=== PATIENT | female | born 1955 | race Caucasian/White ===

== ENCOUNTER 2017-12-15 12:52 | Outpatient (CLI) | payer BC ==
[2017-12-15] MEDS ORDERED: Gadobenate Dimeglumine 529 MG/1 ML (20ML VIAL) ONE (14:23)
== END 2017-12-15 12:53 | disposition home or self-care (01) ==
LOC: BICMRI 12:52
PROVIDERS: ATTEND Colon & Rectal Surgery
DX: R15.2 Fecal urgency (principal); M47.896 Other spondylosis, lumbar region
CPT/HCPCS: 72197; A9579

== ENCOUNTER 2018-08-27 23:29 | Observation (INO) | payer BC ==
[2018-08-28 00:06] LABS: #Basophils 0.1 thou/uL (0.0-0.2); #Eosinphils 0.2 thou/uL (0.0-0.7); #Lymphocytes 1.9 thou/uL (1.20-3.40); #Monocytes 0.4 thou/uL (0.11-0.59); #Neutrophils 2.4 thou/uL (1.40-6.50); %Basophils 1.1 % (0.0-1.0); %Eosinophils 3.2 % (0.0-10.0); %Lymphocytes 38.2 % (21.0-51.0); %Neutrophils 49.5 % (42.0-75.0); Hemoglobin 14.1 g/dL (12.0-16.0); Mean Corpuscular Hemoglobin 31.1 pg (27.0-31.0); Mean Corpuscular Volume 91.6 fL (78.0-98.0); Mean Platelet Volume 8.2 fL (7.4-10.4); Platelet Count 187 thou/uL (130-400); RBC Distribution Width 12.6 % (11.5-14.5); Red Blood Cell (RBC) Count 4.55 mill/uL (4.20-5.40); White Blood Cell (WBC) Count 4.9 thou/uL (4.8-10.8)
[2018-08-28] MEDS ORDERED: Lorazepam 2 MG/ML VIAL ONE (00:09)
[2018-08-28 00:26] LABS: ALT (SGPT) 27 U/L (8-55); AST (SGOT) 21 U/L (5-34); Albumin 4.2 g/dL (3.4-4.8); Alkaline Phosphatase 60 U/L (40-150); Anion Gap 13 mmol/L (10-20); BUN (Urea Nitrogen) 27 mg/dL (9.8-20.1); Bilirubin, Total 0.2 mg/dL (0.2-1.2); Calc. Creatinine Clearance 0 mL/min (70-130); Calcium 9.8 mg/dL (7.8-10.44); Carbon Dioxide 25 mmol/L (23-31); Chloride 104 mmol/L (98-107); Estimated GFR-MDRD 55; Globulin 2.8 g/dL (2.4-3.5); Glucose 93 mg/dL (80-115); Potassium 4.3 mmol/L (3.5-5.1); Sodium 138 mmol/L (136-145)
[2018-08-28 00:45] LABS: Free T4 (Free Thyroxine) 1.24 ng/dL (0.70-1.48); Thyroid Stimulating Hormone 1.8299 uIU/mL (0.35-4.94)
[2018-08-28] MEDS ORDERED: Lorazepam 2 MG/ML VIAL SLOW IVP PRN (02:58)
[2018-08-28 03:19] VITALS: BMI 21.5
[2018-08-28] MEDS: Sodium Chloride 0.9% 1,000 ML IV SCH ×2 (03:41→10:04)
[2018-08-28] MEDS ORDERED: Ondansetron HCl/PF 4 MG/2 ML Vial IVP PRN (05:54)
[2018-08-28] MEDS ORDERED: Levothyroxine Sodium 125 MCG TAB PO SCH (06:00)
[2018-08-28] MEDS ORDERED: Sodium Chloride 0.9% 1,000 ML IV SCH (06:00)
--- NOTE | 2018-08-28 06:27 | HP ---
CHIEF COMPLAINT: Anxiety. HISTORIAN: Patient. HISTORY OF PRESENT ILLNESS: This is a 63-year-old female with past medical history of anxiety, hyper tension, hypothyroidism, presenting with anxiety and diarrhea. Per electronic medical records and peyton evans, she states that she normally takes Valium 2 mg 4 times a day and that is the medication that h as been prescribed by a psychologist and she has been taking this for a while and in the past couple of days, patient stated that she has not been feeling too well and she felt very agitated. Therefore , patient decided not to take her full dose of Valium the day of admission. Patient then became very jittery and patient started having episodes of diarrhea because the patient took only 2 mg throughou t the whole day on the day of admission. Patient denies any fever, nausea, vomiting, chest pain, pal pitation, shortness of breath. REVIEW OF SYSTEMS: Positive for anxiety, jitteriness, tremors, diarrhea otherwise as documented in t he HPI. All other systems were reviewed and are negative. FAMILY HISTORY: Reviewed and noncontributory. PAST MEDICAL HISTORY: Hypothyroidism, hypertension, anxiety. PAST SURGICAL HISTORY: Back, hernia repair, lumbar region, right breast biopsy. PSYCHIATRIC HISTORY: Anxiety. SOCIAL HISTORY: Patient drinks occasionally and patient states that she smokes tobacco, smokes 1-2 c igarettes per day and patient has been smoking for 20 years. Patient denies any illicit drug use. ALLERGIES: Patient is allergic to AMOXICILLIN, AUGMENTIN, GABAPENTIN. CURRENT MEDICATIONS: Patient is on levothyroxine, temazepam, diazepam, sertraline. PHYSICAL EXAMINATION: VITAL SIGNS: Blood pressure is 159/58, pulse is 68, respiratory rate of 16, temperature of 99.2, oxy gen saturation of 97%. GENERAL: Patient is alert, oriented x3, not in acute distress. Patient is now lying in bed comforta pricila. Patient does not appear to be anxious at this time. HEENT: Normocephalic, atraumatic. Pupils are equally round and react to light. Extraocular movemen ts are intact. No scleral icterus. No conjunctival pallor. Mucous membranes are moist. Trachea is midline. NECK: Supple. No JVD. LUNGS: Clear to auscultation bilateral. No wheezing, no rales, no rhonchus appreciated. CARDIOVASCULAR: Positive S1, S2, regular rate and rhythm, no murmurs, no gallops or rubs appreciated . ABDOMEN: Soft, nontender, nondistended. Positive bowel sounds in all quadrants. No pulsatile sylvia s. No peritoneal signs. No rigidity. EXTREMITIES: Upper extremity strength 5/5 and 5/5 lower extremity strength. Good pulses bilaterally at the upper extremity and lower extremities. NEUROLOGIC: Patient has a GCS of 15. Hyperreflexes noted. Patient has some tremulousness. Otherwi se, patient does not have any neurological deficits. SKIN: Warm, dry, and intact. PSYCHIATRIC: Normal affect. LABORATORY DATA: WBC is 4.9, hemoglobin is 14.1, hematocrit is 41.7, platelet count of 587. Sodium is 138, potassium 4.3, chloride 104, carbon dioxide 25, anion gap of 13, BUN is 27, creatinine is 1.0 2, glucose is 93, T4 free is 1.24. TSH is 1.8299. ASSESSMENT AND PLAN: This is a 63-year-old female with significant history of anxiety, being admitte d for benzodiazepine withdrawal. At this point, the patient is calm, and the patient has received 2 mg Ativan. We are going to start patient back on her regular regimen of diazepam q.i.d. and we will give patient gentle hydration and continue supportive care. 1. History of anxiety. Patient did have history of anxiety and persisting that she has been taking diazepam 8 mg total daily. At this point, we will continue the patient on her current regimen and we will advise the patient to follow up with her psychiatrist regarding benzodiazepine taper if needed. 2. Hypertension. We will monitor the patient's blood pressure closely and will give patient blood p ressure medication as needed. 3. Hypothyroidism. We will continue the patient on her current medication. 4. Deep venous thrombosis and gastrointestinal prophylaxis. We will do Lovenox and Pepcid. This case has been dictated by Dr. Clement Herndon on patient, Dionna Valenzuela.
[2018-08-28] MEDS: Diazepam 2 MG TAB PO SCH ×2 (08:58→13:52)
[2018-08-28] MEDS ORDERED: Famotidine/PF 20 mg/2ml Vial SLOW IVP SCH (09:00)
[2018-08-28] MEDS ORDERED: Nicotine 14 MG PATCH TD SCH (09:00)
[2018-08-28] MEDS ORDERED: Enoxaparin Sodium 40 MG/0.4 ML SYRINGE SC SCH (09:00)
[2018-08-28 11:34] VITALS: BP 117/58; TEMP 98.3
--- NOTE | 2018-08-29 00:27 | DIS ---
SHORT STAY SUMMARY DATE OF ADMISSION: 08/28/2018 DATE OF DISCHARGE: 08/28/2018 DIAGNOSES: Benzodiazepine withdrawal, which is resolved; anxiety; essential hypertension; hypothyroidism, controlled on medications. CONSULTANTS: There were no consultants. CODE STATUS: FULL. PROCEDURES: There were no procedures performed during this visit. HISTORY AND PHYSICAL: Patient was examined by me on this visit and no changes from prior H&P on the hospitalist note from today. HOSPITAL COURSE: Seen by me this morning. The patient is feeling better after being given Ativan in the ER and her scheduled dose of diazepam this morning. She has a history of anxiety and is prescribed this Valium 2 mg x 4 times per day. Two days prior to admission, she took an extra Valium with her temazepam at night and woke up feeling very agitated. Reports on the day of admission, she only took 1 tablet of her valium all day because she was afraid she overdosed on her medications. She reports she went to the ED because she was "feeling wierd". Reports 1 episode of diarrhea while she has been in the hospital. She is feeling better today and vital signs are stable. Denies no new complaints. Temperature is 98.3, pulse is 60, blood pressure is 117/58, respirations are 16, pulse oximetry is 95 on room air. MEDICATIONS: There will be no new meds added to her regimen, or discontinued meds. She is to continue levothyroxine 125 mcg p.o. daily, diazepam 2 mg q.i.d. , sertraline 100 mg p.o. daily, and temazepam 30 mg p.o. p.r.n. at bedtime. DISCHARGE CONDITION: Stable. DISPOSITION: Discharged home via private vehicle. FOLLOWUP APPOINTMENTS: She is to see Dr. Richard and Dr. Romero within the next week. [facility] FACILITYMorgan
[2018-08-29] MEDS ORDERED: Famotidine 20 MG TAB PO SCH (09:00)
== END 2018-08-28 13:47 | disposition home or self-care (01) ==
LOC: ERS 23:29 → 2SW 08-28 01:19
PROVIDERS: ADMIT Internal Medicine; ATTEND Internal Medicine
DX: F13.239 Sedative, hypnotic or anxiolytic dependence with withdrawal, unspecified (principal); F41.9 Anxiety disorder, unspecified; I10 Essential (primary) hypertension; E03.9 Hypothyroidism, unspecified; F17.210 Nicotine dependence, cigarettes, uncomplicated; Z79.899 Other long term (current) drug therapy; Z88.0 Allergy status to penicillin; Z88.8 Allergy status to other drugs, medicaments and biological substances
CPT/HCPCS: 36415; 80053; 84439; 84443; 85025; 90471; 90686; 93005; 96361; 96374; 96375; 96376; G0008; G0378; J1650; J2060; S0028

== ENCOUNTER 2018-08-29 14:21 | Emergency (ER) | payer BC ==
[2018-08-29] MEDS ORDERED: diphenhydrAMINE 25 MG CAP ONE (14:28)
[2018-08-29 15:09] LABS: #Basophils 0.1 thou/uL (0.0-0.2); #Eosinphils 0.1 thou/uL (0.0-0.7); #Lymphocytes 1.3 thou/uL (1.20-3.40); #Monocytes 0.4 thou/uL (0.11-0.59); #Neutrophils 3.1 thou/uL (1.40-6.50); %Eosinophils 1.4 % (0.0-10.0); %Lymphocytes 25.7 % (21.0-51.0); %Monocytes 8.2 % (0.0-10.0); %Neutrophils 63.7 % (42.0-75.0); Hemoglobin 14.4 g/dL (12.0-16.0); Mean Corpuscular HGB CONC 33.4 g/dL (32.0-36.0); Mean Corpuscular Hemoglobin 30.5 pg (27.0-31.0); Mean Corpuscular Volume 91.5 fL (78.0-98.0); Mean Platelet Volume 8.8 fL (7.4-10.4); Platelet Count 185 thou/uL (130-400); Red Blood Cell (RBC) Count 4.71 mill/uL (4.20-5.40); White Blood Cell (WBC) Count 4.9 thou/uL (4.8-10.8)
[2018-08-29 15:19] LABS: ALT (SGPT) 30 U/L (8-55); AST (SGOT) 24 U/L (5-34); Albumin 4.6 g/dL (3.4-4.8); Alkaline Phosphatase 63 U/L (40-150); Anion Gap 11 mmol/L (10-20); BUN (Urea Nitrogen) 17 mg/dL (9.8-20.1); Bilirubin, Total 0.3 mg/dL (0.2-1.2); CK (CPK) 112 U/L (29-168); Calc. Creatinine Clearance 0 mL/min (70-130); Calcium 9.7 mg/dL (7.8-10.44); Carbon Dioxide 30 mmol/L (23-31); Chloride 100 mmol/L (98-107); Estimated GFR-MDRD 62; Globulin 2.8 g/dL (2.4-3.5); Glucose 101 mg/dL (80-115); Lipase 77 U/L (8-78); Magnesium 2.4 mg/dL (1.6-2.6); Potassium 4.2 mmol/L (3.5-5.1); Protein, Total 7.4 g/dL (6.0-8.3); Sodium 137 mmol/L (136-145)
[2018-08-29 15:24] LABS: CKMB 1.9 ng/mL (0-6.6); Troponin I Less than 0.010 ng/mL (< 0.028)
== END 2018-08-29 16:38 | disposition home or self-care (01) ==
LOC: ERS 14:21
DX: F41.9 Anxiety disorder, unspecified (principal); E03.9 Hypothyroidism, unspecified; F17.210 Nicotine dependence, cigarettes, uncomplicated; Z79.899 Other long term (current) drug therapy
CPT/HCPCS: 80053; 82550; 82553; 83690; 83735; 84443; 84484; 85025; 93005; 94760

== ENCOUNTER 2019-02-06 17:19 | Emergency (ER) | payer BC ==
[2019-02-06 19:10] LABS: #Basophils 0.1 thou/uL (0.0-0.2); #Eosinphils 0.1 thou/uL (0.0-0.7); #Lymphocytes 1.6 thou/uL (1.20-3.40); #Monocytes 0.5 thou/uL (0.11-0.59); #Neutrophils 4.7 thou/uL (1.40-6.50); %Basophils 1.2 % (0.0-1.0); %Eosinophils 2.1 % (0.0-10.0); %Monocytes 6.6 % (0.0-10.0); %Neutrophils 67.2 % (42.0-75.0); Hemoglobin 15.6 g/dL (12.0-16.0); Mean Corpuscular HGB CONC 32.7 g/dL (32.0-36.0); Mean Corpuscular Hemoglobin 31.7 pg (27.0-31.0); Mean Corpuscular Volume 96.9 fL (78.0-98.0); Mean Platelet Volume 7.2 fL (7.4-10.4); Platelet Count 246 thou/uL (130-400); RBC Distribution Width 12.4 % (11.5-14.5); Red Blood Cell (RBC) Count 4.92 mill/uL (4.20-5.40); White Blood Cell (WBC) Count 6.9 thou/uL (4.8-10.8)
[2019-02-06 19:32] LABS: ALT (SGPT) 20 U/L (8-55); AST (SGOT) 19 U/L (5-34); Albumin 4.6 g/dL (3.4-4.8); Alkaline Phosphatase 91 U/L (40-150); Anion Gap 12 mmol/L (10-20); BUN (Urea Nitrogen) 13 mg/dL (9.8-20.1); Bilirubin, Total 0.2 mg/dL (0.2-1.2); CK (CPK) 99 U/L (29-168); Calc. Creatinine Clearance 0 mL/min (70-130); Carbon Dioxide 30 mmol/L (23-31); Chloride 100 mmol/L (98-107); Estimated GFR-MDRD 56; Glucose 98 mg/dL (80-115); Lipase 50 U/L (8-78); Potassium 4.4 mmol/L (3.5-5.1); Protein, Total 7.6 g/dL (6.0-8.3); Sodium 138 mmol/L (136-145)
[2019-02-06] MEDS ORDERED: Ondansetron PF 4 MG/2 ML Vial ONE (19:42)
--- NOTE | 2019-02-06 19:57 | RAD ---
AP VIEW CHEST: 02/06/19 HISTORY: Cough, weakness. AP view chest is obtained on 02/06/19. COMPARISON: Comparison made to previous exam from 01/23/13. AP view chest demonstrates the lungs to be well aerated. No evidence of active intrathoracic disease seen. No evidence of effusions, pneumonia or pneumothorax seen. IMPRESSION: Unremarkable AP view chest. POS: [facility]
[2019-02-06] MEDS ORDERED: ALPRAZolam 0.5 MG TAB ONE (20:54)
[2019-02-06 20:57] LABS: Bilirubin Negative (Negative); Blood, Urine Negative (Negative); Clarity CLEAR (Clear); Glucose, Urine (Dipstick) Negative (Negative); Leukocyte Negative (Negative); Nitrite Negative (Negative); Protein, Urine (Dipstick) Negative (Neg-Trace); Specific Gravity, Urine 1.007 (1.002-1.036); Urobilinogen 0.2 mg/dL (0.2-1.0)
== END 2019-02-06 21:43 | disposition home or self-care (01) ==
LOC: ERS 17:19
DX: B34.9 Viral infection, unspecified (principal); R53.1 Weakness; R11.0 Nausea; E03.9 Hypothyroidism, unspecified; F41.9 Anxiety disorder, unspecified; F32.9 Major depressive disorder, single episode, unspecified; F17.210 Nicotine dependence, cigarettes, uncomplicated; K58.9 Irritable bowel syndrome, unspecified
CPT/HCPCS: 36415; 71045; 80053; 81003; 82550; 83690; 84443; 84484; 85025; 87804; 93005; 96361; 96374; J2405

== ENCOUNTER 2019-02-16 12:02 | Emergency (ER) | payer BC ==
[2019-02-16] MEDS ORDERED: Ondansetron PF 4 MG/2 ML Vial ONE (12:54)
[2019-02-16 13:15] LABS: #Eosinphils 0.1 thou/uL (0.0-0.7); #Lymphocytes 1.1 thou/uL (1.20-3.40); #Monocytes 0.4 thou/uL (0.11-0.59); #Neutrophils 3.4 thou/uL (1.40-6.50); %Eosinophils 1.6 % (0.0-10.0); %Lymphocytes 21.4 % (21.0-51.0); %Monocytes 7.1 % (0.0-10.0); %Neutrophils 68.9 % (42.0-75.0); Hemoglobin 14.1 g/dL (12.0-16.0); Mean Corpuscular HGB CONC 33.4 g/dL (32.0-36.0); Mean Corpuscular Hemoglobin 32.5 pg (27.0-31.0); Mean Corpuscular Volume 97.2 fL (78.0-98.0); Mean Platelet Volume 7.3 fL (7.4-10.4); Platelet Count 189 thou/uL (130-400); RBC Distribution Width 12.1 % (11.5-14.5); Red Blood Cell (RBC) Count 4.33 mill/uL (4.20-5.40); White Blood Cell (WBC) Count 4.9 thou/uL (4.8-10.8)
--- NOTE | 2019-02-16 13:32 | RAD ---
PORTABLE CHEST: Date: 02/16/19 HISTORY: Weakness. Syncope. COMPARISON: 02/06/19. FINDINGS: Heart size and mediastinum are within normal limits. The lungs are clear of any infiltrative process. No significant bony findings. IMPRESSION: No active intrathoracic disease. POS: [facility]
[2019-02-16 13:35] LABS: ALT (SGPT) 39 U/L (8-55); AST (SGOT) 25 U/L (5-34); Albumin 4.4 g/dL (3.4-4.8); Alkaline Phosphatase 77 U/L (40-150); Anion Gap 11 mmol/L (10-20); BUN (Urea Nitrogen) 22 mg/dL (9.8-20.1); Bilirubin, Total 0.2 mg/dL (0.2-1.2); Calc. Creatinine Clearance 0 mL/min (70-130); Calcium 9.7 mg/dL (7.8-10.44); Carbon Dioxide 34 mmol/L (23-31); Chloride 99 mmol/L (98-107); Estimated GFR-MDRD 68; Globulin 2.8 g/dL (2.4-3.5); Glucose 85 mg/dL (80-115); Potassium 4.8 mmol/L (3.5-5.1); Protein, Total 7.2 g/dL (6.0-8.3); Sodium 139 mmol/L (136-145)
[2019-02-16 13:36] LABS: Bilirubin Negative (Negative); Blood, Urine Negative (Negative); Clarity CLEAR (Clear); Glucose, Urine (Dipstick) Negative (Negative); Leukocyte Negative (Negative); Nitrite Negative (Negative); Protein, Urine (Dipstick) Negative (Neg-Trace); Specific Gravity, Urine 1.008 (1.002-1.036); Urobilinogen 0.2 mg/dL (0.2-1.0)
[2019-02-16] MEDS ORDERED: Metoclopramide HCl 10 MG/2 ML VIAL ONE (13:50)
== END 2019-02-16 14:57 | disposition home or self-care (01) ==
LOC: ERS 12:02
DX: R11.2 Nausea with vomiting, unspecified (principal); E03.9 Hypothyroidism, unspecified; F41.9 Anxiety disorder, unspecified; F32.9 Major depressive disorder, single episode, unspecified; F17.210 Nicotine dependence, cigarettes, uncomplicated; Z79.899 Other long term (current) drug therapy
CPT/HCPCS: 71045; 80053; 81003; 84484; 85025; 93005; 96361; 96365; 96375; J2405; J2765

== ENCOUNTER 2019-02-20 13:30 | Emergency (ER) | payer BC ==
[2019-02-20] MEDS ORDERED: Ketorolac Tromethamine 30 MG/ML VIAL ONE (15:08)
[2019-02-20] MEDS ORDERED: Metoclopramide HCl 10 MG/2 ML VIAL ONE (15:08)
[2019-02-20] MEDS ORDERED: diphenhydrAMINE 50 MG/ML VIAL ONE (15:08)
--- NOTE | 2019-02-20 15:26 | CT ---
CT BRAIN NONCONTRAST: Date: 02/20/19 Time: 1510 hours HISTORY: 64-year-old female with headache. FINDINGS: There is no midline shift or any other mass effect. There is no evidence of acute intracranial hemor rhage, large cortical infarct, obstructive hydrocephalus, or extraaxial fluid collection. The calvar ium is intact. There are chronic ischemic white matter changes in the cerebrum. There is no significa nt interval change compared to 01/23/13. IMPRESSION: 1. No acute intracranial findings. 2. Chronic ischemic white matter changes. jn [] POS: [facility]
[2019-02-20 17:56] LABS: #Basophils 0.1 thou/uL (0.0-0.2); #Eosinphils 0.1 thou/uL (0.0-0.7); #Lymphocytes 1.5 thou/uL (1.20-3.40); #Monocytes 0.3 thou/uL (0.11-0.59); #Neutrophils 2.7 thou/uL (1.40-6.50); %Basophils 1.1 % (0.0-1.0); %Eosinophils 1.9 % (0.0-10.0); %Lymphocytes 31.6 % (21.0-51.0); %Monocytes 6.6 % (0.0-10.0); %Neutrophils 58.8 % (42.0-75.0); Hemoglobin 13.5 g/dL (12.0-16.0); Mean Corpuscular HGB CONC 32.2 g/dL (32.0-36.0); Mean Corpuscular Hemoglobin 31.2 pg (27.0-31.0); Mean Corpuscular Volume 96.8 fL (78.0-98.0); Mean Platelet Volume 7.3 fL (7.4-10.4); Platelet Count 182 thou/uL (130-400); Red Blood Cell (RBC) Count 4.32 mill/uL (4.20-5.40); White Blood Cell (WBC) Count 4.7 thou/uL (4.8-10.8)
[2019-02-20] MEDS ORDERED: Magnesium 2 GM/50 ML BAG (IN WATER) ONE (18:06)
[2019-02-20] MEDS ORDERED: Acetaminophen 500 MG TAB ONE (18:06)
[2019-02-20] MEDS ORDERED: Ondansetron PF 4 MG/2 ML Vial ONE (18:06)
[2019-02-20] MEDS ORDERED: methylPREDNISolone Sod Succ/PF 125 MG/2 ML VIAL ONE (18:13)
[2019-02-20 18:18] LABS: ALT (SGPT) 55 U/L (8-55); AST (SGOT) 33 U/L (5-34); Albumin 3.9 g/dL (3.4-4.8); Alkaline Phosphatase 74 U/L (40-150); Anion Gap 9 mmol/L (10-20); BUN (Urea Nitrogen) 11 mg/dL (9.8-20.1); Bilirubin, Total 0.4 mg/dL (0.2-1.2); Calc. Creatinine Clearance 0 mL/min (70-130); Calcium 8.6 mg/dL (7.8-10.44); Carbon Dioxide 28 mmol/L (23-31); Chloride 104 mmol/L (98-107); Estimated GFR-MDRD 68; Globulin 2.2 g/dL (2.4-3.5); Glucose 96 mg/dL (80-115); Potassium 4.6 mmol/L (3.5-5.1); Protein, Total 6.1 g/dL (6.0-8.3); Sodium 136 mmol/L (136-145)
== END 2019-02-20 19:47 | disposition home or self-care (01) ==
LOC: ERS 13:30
DX: R51 Headache (principal); E03.9 Hypothyroidism, unspecified; F41.9 Anxiety disorder, unspecified; F32.9 Major depressive disorder, single episode, unspecified; F17.210 Nicotine dependence, cigarettes, uncomplicated; Z79.899 Other long term (current) drug therapy
CPT/HCPCS: 36415; 70450; 80053; 85025; 96361; 96365; 96367; 96375; J1200; J1885; J2405; J2765; J2930; J3475

== ENCOUNTER 2021-12-17 10:30 | Outpatient (CLI) | payer MEDICARE | END 2021-12-17 10:31 | disposition home or self-care (01) | LOC: ULT 10:30 | PROVIDERS: ATTEND Family Medicine | DX: Z13.6 Encounter for screening for cardiovascular disorders (principal) | CPT/HCPCS: 76775 ==

== ENCOUNTER 2021-12-21 12:20 | Outpatient (CLI) | payer MEDICARE | END 2021-12-21 12:21 | disposition home or self-care (01) | LOC: BICMAMMO 12:20 | PROVIDERS: ATTEND Family Medicine | DX: Z12.31 Encounter for screening mammogram for malignant neoplasm of breast (principal); Z80.3 Family history of malignant neoplasm of breast | CPT/HCPCS: 77063; 77067 ==

== ENCOUNTER 2021-12-21 13:14 | Outpatient (CLI) | payer MEDICARE | END 2021-12-21 13:15 | disposition home or self-care (01) | LOC: BICRAD 13:14 | PROVIDERS: ATTEND Family Medicine | DX: M25.512 Pain in left shoulder (principal); M25.511 Pain in right shoulder ==

== ENCOUNTER 2022-01-10 13:40 | Outpatient (CLI) | payer MEDICARE | END 2022-01-10 13:41 | disposition home or self-care (01) | LOC: BICRAD 13:40 | PROVIDERS: ATTEND Family Medicine | DX: M47.812 Spondylosis without myelopathy or radiculopathy, cervical region (principal) | CPT/HCPCS: 72040 ==

== ENCOUNTER 2022-04-20 13:15 | Outpatient (CLI) | payer MEDICARE | END 2022-04-20 13:16 | disposition home or self-care (01) | LOC: ULT 13:15 | PROVIDERS: ATTEND Family Medicine | DX: R09.89 Other specified symptoms and signs involving the circulatory and respiratory systems (principal); I70.213 Atherosclerosis of native arteries of extremities with intermittent claudication, bilateral legs | CPT/HCPCS: 93923 ==

== ENCOUNTER 2022-06-22 11:28 | Outpatient (CLI) | payer MEDICARE ==
[2022-06-22] MEDS ORDERED: Iopamidol 370 76% 100 ML VIAL ONE (14:09)
== END 2022-06-22 11:29 | disposition home or self-care (01) ==
LOC: CT 11:28
PROVIDERS: ATTEND Family Medicine
DX: R09.89 Other specified symptoms and signs involving the circulatory and respiratory systems (principal); I70.1 Atherosclerosis of renal artery; I70.0 Atherosclerosis of aorta
CPT/HCPCS: 75635; 82565; Q9967

== ENCOUNTER 2022-07-05 12:02 | Emergency (ER) | payer MEDICARE ==
[2022-07-05 12:40] LABS: #Basophils 0.1 thou/uL (0.0-0.2); #Eosinphils 0.1 thou/uL (0.0-0.7); #Monocytes 0.6 thou/uL (0.11-0.59); #Neutrophils 9.5 thou/uL (1.40-6.50); %Basophils 0.5 % (0.0-1.0); %Eosinophils 0.7 % (0.0-10.0); %Lymphocytes 9.1 % (21.0-51.0); %Monocytes 5.4 % (0.0-10.0); %Neutrophils 84.3 % (42.0-75.0); Hemoglobin 15.5 g/dL (12.0-16.0); Mean Corpuscular HGB CONC 32.5 g/dL (32.0-36.0); Mean Corpuscular Hemoglobin 31.6 pg (27.0-31.0); Mean Corpuscular Volume 97.3 fL (78.0-98.0); Mean Platelet Volume 7.7 fL (7.4-10.4); Platelet Count 186 thou/uL (130-400); RBC Distribution Width 11.9 % (11.5-14.5); Red Blood Cell (RBC) Count 4.89 mill/uL (4.20-5.40); White Blood Cell (WBC) Count 11.3 thou/uL (4.8-10.8)
[2022-07-05 12:51] LABS: ALT (SGPT) 11 U/L (8-55); AST (SGOT) 12 U/L (5-34); Albumin 4.3 g/dL (3.4-4.8); Alkaline Phosphatase 56 U/L (40-110); Anion Gap 13 mmol/L (10-20); BUN (Urea Nitrogen) 14 mg/dL (9.8-20.1); Bilirubin, Total 0.5 mg/dL (0.2-1.2); Calc. Creatinine Clearance 0 mL/min (70-130); Calcium 9.2 mg/dL (7.8-10.44); Carbon Dioxide 28 mmol/L (23-31); Chloride 99 mmol/L (98-107); Estimated GFR 66; Globulin 2.5 g/dL (2.4-3.5); Glucose 134 mg/dL (80-115); Potassium 4.4 mmol/L (3.5-5.1); Protein, Total 6.8 g/dL (5.8-8.1); Sodium 136 mmol/L (136-145)
[2022-07-05] MEDS ORDERED: diphenhydrAMINE 50 MG/ML VIAL ONE (13:43)
[2022-07-05] MEDS ORDERED: Haloperidol Lactate 5 MG/ML VIAL ONE (13:43)
== END 2022-07-05 15:02 | disposition home or self-care (01) ==
LOC: ERS 12:02
DX: K56.41 Fecal impaction (principal); E03.9 Hypothyroidism, unspecified; K58.9 Irritable bowel syndrome, unspecified; E06.3 Autoimmune thyroiditis; F17.210 Nicotine dependence, cigarettes, uncomplicated; Z79.82 Long term (current) use of aspirin; Z79.899 Other long term (current) drug therapy
CPT/HCPCS: 36415; 74019; 80053; 85025; 96372; J1200; J1630

== ENCOUNTER 2022-07-29 12:53 | Outpatient (CLI) | payer MEDICARE | END 2022-07-29 12:54 | disposition home or self-care (01) | LOC: RAD 12:53 | PROVIDERS: ATTEND Family Medicine | DX: R07.89 Other chest pain (principal); M41.57 Other secondary scoliosis, lumbosacral region; G89.29 Other chronic pain; M47.816 Spondylosis without myelopathy or radiculopathy, lumbar region; M47.814 Spondylosis without myelopathy or radiculopathy, thoracic region; M41.9 Scoliosis, unspecified | CPT/HCPCS: 71046; 72072; 72100 ==

== ENCOUNTER 2022-09-04 11:06 | Inpatient (IN) | payer MEDICARE ==
[~2022-09-04 11:06] MED LIST: Iopamidol 370 76% 50 ML VIAL FS ONE
[2022-09-04] MEDS ORDERED: Fentanyl 100 MCG/2 ML VIAL ONE (11:44)
[2022-09-04] MEDS ORDERED: Acetaminophen 500 MG TAB ONE (11:44)
[2022-09-04] MEDS ORDERED: Cefepime 2 GM VIAL ONE (11:44)
[2022-09-04] MEDS ORDERED: Ondansetron PF 4 MG/2 ML Vial ONE (11:44)
[2022-09-04 11:52] LABS: #Lymphocytes 0.9 thou/uL (1.20-3.40); #Monocytes 0.6 thou/uL (0.11-0.59); #Neutrophils 15.8 thou/uL (1.40-6.50); %Eosinophils 0.1 % (0.0-10.0); %Lymphocytes 5.3 % (21.0-51.0); %Monocytes 3.2 % (0.0-10.0); %Neutrophils 91.3 % (42.0-75.0); Hemoglobin 15.7 g/dL (12.0-16.0); Mean Corpuscular HGB CONC 32.3 g/dL (32.0-36.0); Mean Corpuscular Hemoglobin 30.6 pg (27.0-31.0); Mean Corpuscular Volume 94.8 fL (78.0-98.0); Mean Platelet Volume 7.3 fL (7.4-10.4); Platelet Count 297 thou/uL (130-400); RBC Distribution Width 12.5 % (11.5-14.5); Red Blood Cell (RBC) Count 5.11 mill/uL (4.20-5.40); White Blood Cell (WBC) Count 17.3 thou/uL (4.8-10.8)
[2022-09-04 12:11] LABS: ALT (SGPT) 7 U/L (8-55); AST (SGOT) 9 U/L (5-34); Albumin 4.4 g/dL (3.4-4.8); Alkaline Phosphatase 90 U/L (40-110); Anion Gap 14 mmol/L (10-20); BUN (Urea Nitrogen) 28 mg/dL (9.8-20.1); Bilirubin, Total 0.5 mg/dL (0.2-1.2); CK (CPK) 24 U/L (29-168); Calc. Creatinine Clearance 0 mL/min (70-130); Calcium 9.9 mg/dL (7.8-10.44); Carbon Dioxide 30 mmol/L (23-31); Chloride 96 mmol/L (98-107); Estimated GFR 61; Globulin 3.4 g/dL (2.4-3.5); Glucose 95 mg/dL (80-115); Lipase 16 U/L (8-78); Magnesium 1.7 mg/dL (1.6-2.6); Potassium 4.1 mmol/L (3.5-5.1); Protein, Total 7.8 g/dL (5.8-8.1); Sodium 136 mmol/L (136-145)
[2022-09-04] MEDS ORDERED: Vancomycin 1 GM/200 ML BAG ONE (12:55)
[2022-09-04 14:21] LABS: SARS-CoV-2 NAA Rapid Test Not Detected (NotDetected)
[2022-09-04 14:58] LABS: Bilirubin Negative (Negative); Blood, Urine Negative (Negative); Clarity Clear (Clear); Glucose, Urine (Dipstick) Normal (Negative); Ketone, Urine Negative (Negative); Leukocyte Negative Leu/uL (Negative); Nitrite Negative (Negative); Protein, Urine (Dipstick) Negative (Neg-Trace); Urobilinogen Normal mg/dL (Less than 2)
[2022-09-04 15:00] LABS: Specific Gravity, Urine 1.047 (1.002-1.036)
[2022-09-04] MEDS ORDERED: Dicyclomine 20 MG/2 ML VIAL ONE (15:28)
[2022-09-04] MEDS ORDERED: Guaifenesin DM 100-10/5 ML UDCUP PO PRN (19:09)
[2022-09-04] MEDS ORDERED: Acetaminophen 325 MG TAB PO PRN (19:09)
[2022-09-04] MEDS ORDERED: Loperamide HCl 2 MG CAP PO PRN (19:09)
[2022-09-04] MEDS ORDERED: traZODone HCl 50 MG TAB PO PRN (19:15)
[2022-09-04] MEDS ORDERED: ALPRAZolam 1 MG TAB PO PRN (19:15)
[2022-09-04] MEDS ORDERED: Cyclobenzaprine 10 MG TAB PO PRN (19:15)
[2022-09-04] MEDS: Prazosin HCl 1 MG CAP PO SCH (19:59)
[2022-09-04] MEDS: ALPRAZolam 1 MG TAB PO PRN (20:00)
[2022-09-04] MEDS: HYDROcodone/Acetaminophen 10/325 mg Tablet PO PRN (20:01)
[2022-09-04] MEDS: Cyclobenzaprine 10 MG TAB PO SCH (20:02)
[2022-09-04] MEDS: Famotidine/PF 20 mg/2ml Vial SLOW IVP SCH (20:02)
[2022-09-04] MEDS: Zolpidem Tartrate 5 MG TAB PO PRN (20:02)
[2022-09-04] MEDS: Gabapentin 300 MG CAP PO SCH (20:02)
[2022-09-04] MEDS: Sodium Chloride 0.9% 1,000 ML IV SCH (20:03)
[2022-09-04] MEDS: Nicotine 21 MG PATCH TD SCH (20:08)
[2022-09-04 20:20] VITALS: BMI 20.1
[2022-09-04] MEDS: Bisacodyl 5 MG TAB PO PRN (20:26)
[2022-09-04] MEDS ORDERED: Gabapentin 300 MG CAP PO SCH (21:00)
[2022-09-04] MEDS ORDERED: Prazosin HCl 1 MG CAP PO SCH (21:00)
[2022-09-05] MEDS: Sodium Chloride 0.9% 1,000 ML IV SCH ×2 (05:17→15:02)
[2022-09-05] MEDS: Levothyroxine 150 MCG TAB PO SCH (05:17)
[2022-09-05] MEDS ORDERED: Levothyroxine 150 MCG TAB PO SCH (06:00)
[2022-09-05] MEDS: HYDROcodone/Acetaminophen 10/325 mg Tablet PO PRN (06:07)
[2022-09-05 06:48] LABS: #Lymphocytes 1.3 thou/uL (1.20-3.40); #Monocytes 0.4 thou/uL (0.11-0.59); #Neutrophils 11.8 thou/uL (1.40-6.50); %Basophils 0.1 % (0.0-1.0); %Eosinophils 0.2 % (0.0-10.0); %Lymphocytes 9.4 % (21.0-51.0); %Monocytes 2.8 % (0.0-10.0); %Neutrophils 87.5 % (42.0-75.0); Hemoglobin 13.9 g/dL (12.0-16.0); Mean Corpuscular HGB CONC 32.4 g/dL (32.0-36.0); Mean Corpuscular Hemoglobin 31.2 pg (27.0-31.0); Mean Corpuscular Volume 96.4 fL (78.0-98.0); Mean Platelet Volume 7.2 fL (7.4-10.4); Platelet Count 274 thou/uL (130-400); RBC Distribution Width 12.4 % (11.5-14.5); Red Blood Cell (RBC) Count 4.46 mill/uL (4.20-5.40); White Blood Cell (WBC) Count 13.5 thou/uL (4.8-10.8)
[2022-09-05 06:57] LABS: ALT (SGPT) Less than 7 U/L (8-55); AST (SGOT) 10 U/L (5-34); Albumin 3.6 g/dL (3.4-4.8); Alkaline Phosphatase 76 U/L (40-110); Anion Gap 10 mmol/L (10-20); BUN (Urea Nitrogen) 18 mg/dL (9.8-20.1); Bilirubin, Total 0.4 mg/dL (0.2-1.2); Calc. Creatinine Clearance 52 mL/min (70-130); Calcium 8.8 mg/dL (7.8-10.44); Carbon Dioxide 31 mmol/L (23-31); Chloride 101 mmol/L (98-107); Estimated GFR 84; Globulin 2.8 g/dL (2.4-3.5); Glucose 83 mg/dL (80-115); Protein, Total 6.4 g/dL (5.8-8.1); Sodium 138 mmol/L (136-145)
[2022-09-05] MEDS ORDERED: Lactated Ringer's 1,000 ML IV SCH (07:30)
[2022-09-05] MEDS ORDERED: Lubiprostone 8 MCG CAP PO SCH (08:00)
[2022-09-05] MEDS: Aspirin 81 mg Enteric Coated Tablet PO SCH (08:20)
[2022-09-05] MEDS: Cyclobenzaprine 10 MG TAB PO SCH ×2 (08:20→20:18)
[2022-09-05] MEDS: Oxybutynin ER 5 MG TAB PO SCH (08:20)
[2022-09-05] MEDS: Enoxaparin Sodium 30 MG/0.3 ML SYRINGE SC SCH ×2 (08:21→08:28)
[2022-09-05] MEDS: Famotidine/PF 20 mg/2ml Vial SLOW IVP SCH ×3 (08:21→20:19)
[2022-09-05] MEDS: Lidocaine 5% Patch TD SCH (08:21)
[2022-09-05] MEDS: Ondansetron PF 4 MG/2 ML Vial IVP PRN ×2 (08:38→18:57)
[2022-09-05] MEDS: ALPRAZolam 1 MG TAB PO PRN (08:38)
[2022-09-05] MEDS ORDERED: Oxybutynin 5 MG TAB PO SCH (09:00)
[2022-09-05] MEDS ORDERED: Aspirin Chewable 81 MG TAB PO SCH (09:00)
[2022-09-05] MEDS: Lubiprostone 8 MCG CAP PO SCH ×2 (09:24→16:54)
[2022-09-05] MEDS: Morphine 4 MG/ML VIAL SLOW IVP PRN ×3 (10:38→20:19)
[2022-09-05] MEDS: Bisacodyl 5 MG TAB PO PRN (13:08)
[2022-09-05] MEDS: Gabapentin 300 MG CAP PO SCH (20:18)
[2022-09-05] MEDS: Prazosin HCl 1 MG CAP PO SCH (20:18)
[2022-09-05] MEDS: Nicotine 21 MG PATCH TD SCH (20:18)
[2022-09-05] MEDS: Zolpidem Tartrate 5 MG TAB PO PRN (20:19)
[2022-09-05] MEDS: Transdermal Patch Removal TOP SCH (20:19)
[2022-09-06] MEDS: Sodium Chloride 0.9% 1,000 ML IV SCH ×2 (00:35→13:38)
[2022-09-06] MEDS: Levothyroxine 150 MCG TAB PO SCH (05:58)
[2022-09-06] MEDS: Morphine 4 MG/ML VIAL SLOW IVP PRN ×3 (05:59→20:45)
[2022-09-06 06:13] LABS: #Eosinphils 0.1 thou/uL (0.0-0.7); #Lymphocytes 1.2 thou/uL (1.20-3.40); #Monocytes 0.6 thou/uL (0.11-0.59); #Neutrophils 5.2 thou/uL (1.40-6.50); %Basophils 0.4 % (0.0-1.0); %Lymphocytes 17.4 % (21.0-51.0); %Neutrophils 73.3 % (42.0-75.0); Hemoglobin 12.3 g/dL (12.0-16.0); Mean Corpuscular HGB CONC 30.8 g/dL (32.0-36.0); Mean Corpuscular Hemoglobin 29.7 pg (27.0-31.0); Mean Corpuscular Volume 96.2 fL (78.0-98.0); Mean Platelet Volume 7.2 fL (7.4-10.4); Platelet Count 266 thou/uL (130-400); RBC Distribution Width 12.2 % (11.5-14.5); Red Blood Cell (RBC) Count 4.14 mill/uL (4.20-5.40); White Blood Cell (WBC) Count 7.1 thou/uL (4.8-10.8)
[2022-09-06 06:23] LABS: ALT (SGPT) Less than 7 U/L (8-55); AST (SGOT) 12 U/L (5-34); Albumin 3.1 g/dL (3.4-4.8); Alkaline Phosphatase 64 U/L (40-110); Anion Gap 8 mmol/L (10-20); BUN (Urea Nitrogen) 14 mg/dL (9.8-20.1); Bilirubin, Total 0.3 mg/dL (0.2-1.2); Calc. Creatinine Clearance 62 mL/min (70-130); Calcium 8.5 mg/dL (7.8-10.44); Carbon Dioxide 30 mmol/L (23-31); Chloride 105 mmol/L (98-107); Estimated GFR 97; Globulin 2.3 g/dL (2.4-3.5); Glucose 84 mg/dL (80-115); Potassium 4.2 mmol/L (3.5-5.1); Protein, Total 5.4 g/dL (5.8-8.1); Sodium 139 mmol/L (136-145)
[2022-09-06] MEDS: Cyclobenzaprine 10 MG TAB PO SCH ×2 (08:29→20:44)
[2022-09-06] MEDS: Lubiprostone 8 MCG CAP PO SCH ×2 (08:29→16:31)
[2022-09-06] MEDS: Oxybutynin ER 5 MG TAB PO SCH (08:29)
[2022-09-06] MEDS: Famotidine/PF 20 mg/2ml Vial SLOW IVP SCH ×2 (08:29→20:46)
[2022-09-06] MEDS: Aspirin 81 mg Enteric Coated Tablet PO SCH (08:29)
[2022-09-06] MEDS: Lidocaine 5% Patch TD SCH (08:29)
[2022-09-06] MEDS: Enoxaparin Sodium 30 MG/0.3 ML SYRINGE SC SCH ×2 (08:29→08:45)
[2022-09-06] MEDS: ALPRAZolam 1 MG TAB PO PRN ×2 (08:38→20:45)
[2022-09-06] MEDS: HYDROcodone/Acetaminophen 10/325 mg Tablet PO PRN ×2 (09:39→16:31)
[2022-09-06] MEDS ORDERED: Magnevist 469MG/ML 20 ML VIAL ONE (10:18)
[2022-09-06] MEDS: Prazosin HCl 1 MG CAP PO SCH (20:44)
[2022-09-06] MEDS: Gabapentin 300 MG CAP PO SCH (20:44)
[2022-09-06] MEDS: traZODone HCl 50 MG TAB PO SCH (20:45)
[2022-09-06] MEDS: Nicotine 21 MG PATCH TD SCH (20:46)
[2022-09-06] MEDS: Transdermal Patch Removal TOP SCH (20:46)
[2022-09-06] MEDS: Zolpidem Tartrate 5 MG TAB PO PRN (22:37)
[2022-09-07 06:09] LABS: #Eosinphils 0.1 thou/uL (0.0-0.7); #Lymphocytes 1.4 thou/uL (1.20-3.40); #Monocytes 0.5 thou/uL (0.11-0.59); #Neutrophils 4.2 thou/uL (1.40-6.50); %Basophils 0.5 % (0.0-1.0); %Eosinophils 1.3 % (0.0-10.0); %Lymphocytes 22.8 % (21.0-51.0); %Monocytes 8.3 % (0.0-10.0); %Neutrophils 67.1 % (42.0-75.0); Hemoglobin 13.4 g/dL (12.0-16.0); Mean Corpuscular HGB CONC 31.6 g/dL (32.0-36.0); Mean Corpuscular Volume 95.1 fL (78.0-98.0); Platelet Count 255 thou/uL (130-400); RBC Distribution Width 12.1 % (11.5-14.5); Red Blood Cell (RBC) Count 4.46 mill/uL (4.20-5.40); White Blood Cell (WBC) Count 6.3 thou/uL (4.8-10.8)
[2022-09-07] MEDS: HYDROcodone/Acetaminophen 10/325 mg Tablet PO PRN ×4 (06:33→21:50)
[2022-09-07] MEDS: Levothyroxine 150 MCG TAB PO SCH (06:33)
[2022-09-07 06:53] LABS: Anion Gap 11 mmol/L (10-20); BUN (Urea Nitrogen) 14 mg/dL (9.8-20.1); Calc. Creatinine Clearance 51 mL/min (70-130); Calcium 9.2 mg/dL (7.8-10.44); Carbon Dioxide 31 mmol/L (23-31); Chloride 101 mmol/L (98-107); Estimated GFR 81; Glucose 89 mg/dL (80-115); Sodium 139 mmol/L (136-145)
[2022-09-07] MEDS: Lubiprostone 8 MCG CAP PO SCH ×2 (08:41→17:23)
[2022-09-07] MEDS: Enoxaparin Sodium 30 MG/0.3 ML SYRINGE SC SCH (08:41)
[2022-09-07] MEDS: Aspirin 81 mg Enteric Coated Tablet PO SCH (08:41)
[2022-09-07] MEDS: Cyclobenzaprine 10 MG TAB PO SCH ×2 (08:41→20:40)
[2022-09-07] MEDS: Famotidine/PF 20 mg/2ml Vial SLOW IVP SCH ×2 (08:42→20:41)
[2022-09-07] MEDS: Lidocaine 5% Patch TD SCH (08:42)
[2022-09-07] MEDS: Oxybutynin ER 5 MG TAB PO SCH (08:42)
[2022-09-07] MEDS: Gabapentin 300 MG CAP PO SCH ×2 (08:42→20:40)
[2022-09-07] MEDS: Morphine 4 MG/ML VIAL SLOW IVP PRN (08:43)
[2022-09-07] MEDS: ALPRAZolam 1 MG TAB PO PRN ×2 (08:43→20:42)
[2022-09-07] MEDS ORDERED: FLU VACC QS2022-23(65YR UP)/PF 240 MCG/0.7 ML SYRINGE IM ONE (09:00)
[2022-09-07] MEDS: Nicotine 21 MG PATCH TD SCH (20:04)
[2022-09-07] MEDS: Prazosin HCl 1 MG CAP PO SCH (20:39)
[2022-09-07] MEDS: traZODone HCl 50 MG TAB PO SCH ×2 (20:41→20:56)
[2022-09-07] MEDS: Zolpidem Tartrate 5 MG TAB PO PRN (20:42)
[2022-09-07] MEDS: Transdermal Patch Removal TOP SCH (21:04)
[2022-09-08] MEDS: Levothyroxine 150 MCG TAB PO SCH (05:32)
[2022-09-08] MEDS: Gabapentin 300 MG CAP PO SCH (07:57)
[2022-09-08] MEDS: Cyclobenzaprine 10 MG TAB PO SCH (07:57)
[2022-09-08] MEDS: Oxybutynin ER 5 MG TAB PO SCH (07:57)
[2022-09-08] MEDS: Famotidine/PF 20 mg/2ml Vial SLOW IVP SCH (07:57)
[2022-09-08 07:58] VITALS: BP 124/73; TEMP 98.4
[2022-09-08] MEDS: HYDROcodone/Acetaminophen 10/325 mg Tablet PO PRN (07:58)
[2022-09-08] MEDS: Aspirin 81 mg Enteric Coated Tablet PO SCH (07:58)
[2022-09-08] MEDS: Enoxaparin Sodium 30 MG/0.3 ML SYRINGE SC SCH (07:59)
[2022-09-08] MEDS: Lubiprostone 8 MCG CAP PO SCH (07:59)
[2022-09-08] MEDS: Lidocaine 5% Patch TD SCH (07:59)
[2022-09-08] MEDS: ALPRAZolam 1 MG TAB PO PRN (08:07)
== END 2022-09-08 11:20 | disposition home or self-care (01) | DRG 93 ==
LOC: ERS 11:06 → T4-A 16:18
PROVIDERS: ADMIT Family Medicine; ATTEND Internal Medicine
DX: G89.29 Other chronic pain (principal); Z20.822 Contact with and (suspected) exposure to COVID-19; N30.90 Cystitis, unspecified without hematuria; E03.9 Hypothyroidism, unspecified; E86.0 Dehydration; F41.9 Anxiety disorder, unspecified; F32.A Depression, unspecified; N32.81 Overactive bladder; F17.210 Nicotine dependence, cigarettes, uncomplicated; E06.3 Autoimmune thyroiditis; K58.1 Irritable bowel syndrome with constipation; M54.9 Dorsalgia, unspecified; K82.8 Other specified diseases of gallbladder; Z88.1 Allergy status to other antibiotic agents; Z88.8 Allergy status to other drugs, medicaments and biological substances; Z79.890 Hormone replacement therapy; Z79.899 Other long term (current) drug therapy
CPT/HCPCS: 36415; 71045; 72158; 74177; 76705; 80048; 80053; 81003; 82550; 83605; 83690; 83735; 84443; 84484; 85025; 86140; 87040; 87086; 93005; 96365; 96366; 96367; 96372; 96375; A9579; J0692; J1650; J2270; J2405; J3010; J3370; J7050; J7120; Q9967; S0028

== ENCOUNTER 2022-12-27 10:37 | Emergency (ER) | payer MEDICARE ==
[2022-12-27] MEDS ORDERED: Ondansetron ODT 4 MG TAB ONE (11:31)
[2022-12-27] MEDS ORDERED: Promethazine 25 MG TAB ONE (12:12)
[2022-12-27 13:18] LABS: #Basophils 0.1 thou/uL (0.0-0.2); #Eosinphils 0.1 thou/uL (0.0-0.7); #Lymphocytes 1.3 thou/uL (1.20-3.40); #Monocytes 0.3 thou/uL (0.11-0.59); #Neutrophils 3.2 thou/uL (1.40-6.50); %Basophils 1.4 % (0.0-1.0); %Eosinophils 1.1 % (0.0-10.0); %Lymphocytes 27.2 % (21.0-51.0); %Monocytes 5.2 % (0.0-10.0); %Neutrophils 65.1 % (42.0-75.0); Hemoglobin 14.5 g/dL (12.0-16.0); Mean Corpuscular HGB CONC 32.9 g/dL (32.0-36.0); Mean Corpuscular Hemoglobin 30.7 pg (27.0-31.0); Mean Corpuscular Volume 93.5 fl (78.0-98.0); Mean Platelet Volume 7.6 fL (7.4-10.4); Platelet Count 155 10x3/uL (130-400); RBC Distribution Width 12.4 % (11.5-14.5); Red Blood Cell (RBC) Count 4.72 mill/uL (4.20-5.40); White Blood Cell (WBC) Count 4.9 10x3/uL (4.8-10.8)
[2022-12-27 13:47] LABS: ALT (SGPT) 20 U/L (8-55); AST (SGOT) 23 U/L (5-34); Albumin 4.5 g/dL (3.4-4.8); Alkaline Phosphatase 36 U/L (40-110); Anion Gap 13 mmol/L (10-20); BUN (Urea Nitrogen) 18 mg/dL (9.8-20.1); Bilirubin, Total 0.4 mg/dL (0.2-1.2); Calc. Creatinine Clearance 0 mL/min (70-130); Calcium 9.4 mg/dL (7.8-10.44); Carbon Dioxide 28 mmol/L (23-31); Chloride 97 mmol/L (98-107); Estimated GFR 63; Globulin 2.8 g/dL (2.4-3.5); Glucose 87 mg/dL (80-115); Potassium 5.1 mmol/L (3.5-5.1); Protein, Total 7.3 g/dL (5.8-8.1); Sodium 133 mmol/L (136-145)
== END 2022-12-27 14:32 | disposition home or self-care (01) ==
LOC: ERS 10:37
DX: R11.0 Nausea (principal); F15.10 Other stimulant abuse, uncomplicated; E03.9 Hypothyroidism, unspecified; F17.210 Nicotine dependence, cigarettes, uncomplicated; Z79.899 Other long term (current) drug therapy
CPT/HCPCS: 36415; 80053; 84484; 85025; 93005; Q0162; Q0169

== ENCOUNTER 2023-02-27 12:32 | Outpatient (CLI) | payer MEDICARE ==
[2023-02-27 15:35] LABS: Hemoglobin 14.1 g/dL (12.0-15.5); Mean Corpuscular HGB CONC 32.4 g/dL (32.0-36.0); Mean Corpuscular Hemoglobin 30.7 pg (27.0-33.0); Mean Corpuscular Volume 94.8 fl (81.6-98.3); Mean Platelet Volume 9.9 fl (7.4-10.4); Platelet Count 173 10x3/uL (150-450); RBC Distribution Width 12.9 % (11.5-14.5); Red Blood Cell (RBC) Count 4.59 10x6/uL (3.90-5.03); White Blood Cell (WBC) Count 4.5 10x3/uL (3.5-10.5)
[2023-02-27 15:56] LABS: Anion Gap 15 mmol/L (10-20); BUN (Urea Nitrogen) 18 mg/dL (9.8-20.1); Calc. Creatinine Clearance 0 mL/min (70-130); Carbon Dioxide 28 mmol/L (23-31); Chloride 96 mmol/L (98-107); Estimated GFR 74; Glucose 69 mg/dL (80-115); Potassium 5.3 mmol/L (3.5-5.1); Sodium 134 mmol/L (136-145)
== END 2023-02-27 12:33 | disposition home or self-care (01) ==
LOC: LABBT 12:32
PROVIDERS: ATTEND Neurological Surgery
DX: Z01.818 Encounter for other preprocedural examination (principal); M54.16 Radiculopathy, lumbar region; M43.26 Fusion of spine, lumbar region
CPT/HCPCS: 80048; 85027; 93005; 93010

== ENCOUNTER 2023-03-06 06:55 | Inpatient (IN) | payer MEDICARE ==
[2023-03-06] MEDS ORDERED: Dexamethasone 20 MG/5 ML VIAL ONE (09:36)
[2023-03-06] MEDS ORDERED: Rocuronium Bromide 10 MG/ML (10ML VIAL) ONE (09:36)
[2023-03-06] MEDS ORDERED: PROPOFOL 200 MG/20 ML VIAL ONE (09:36)
[2023-03-06] MEDS ORDERED: Lidocaine 1% PF 5 ML VIAL ONE (09:36)
[2023-03-06] MEDS ORDERED: Ondansetron PF 4 MG/2 ML Vial ONE (09:36)
[2023-03-06] MEDS ORDERED: Vancomycin 1 GM VIAL ONE (09:46)
[2023-03-06] MEDS ORDERED: Midazolam HCl 2 mg/2 ml Vial ONE (09:48)
[2023-03-06] MEDS ORDERED: fentaNYL PF 100 MCG/2 ML SYRINGE ONE (09:49)
[2023-03-06] MEDS ORDERED: HYDROmorphone 0.5 MG/0.5 ML SYRINGE ONE (09:50)
[2023-03-06] MEDS ORDERED: Sodium Chloride 0.9% 100 ML ONE (09:50)
[2023-03-06] MEDS ORDERED: CEFAZOLIN 2 GM VIAL ONE (09:50)
[2023-03-06] MEDS ORDERED: Acetaminophen 325 MG TAB PO PRN (10:57)
[2023-03-06] MEDS ORDERED: traMADol HCl 50 MG TAB PO PRN (10:57)
[2023-03-06] MEDS ORDERED: Milk Of Magnesia 30 ML UDCUP PO PRN (10:57)
[2023-03-06] MEDS ORDERED: Ondansetron PF 4 MG/2 ML Vial IVP PRN (10:57)
[2023-03-06] MEDS ORDERED: Cyclobenzaprine 10 MG TAB PO PRN (10:57)
[2023-03-06] MEDS ORDERED: diphenhydrAMINE 25 MG CAP PO PRN (10:57)
[2023-03-06] MEDS ORDERED: Promethazine HCl 25 MG/ML VIAL IM PRN (10:57)
[2023-03-06] MEDS ORDERED: Promethazine 25 MG TAB PO PRN (10:57)
[2023-03-06] MEDS ORDERED: HYDROcodone/Acetaminophen 10/325 mg Tablet PO PRN (10:57)
[2023-03-06] MEDS ORDERED: SUGAMMADEX SODIUM 200 MG/2 ML VIAL ONE (10:57)
[2023-03-06] MEDS ORDERED: fentaNYL 50 mcg/mL 1 mL Vial ONE ×2 (11:26→11:46)
[2023-03-06] MEDS ORDERED: Ketorolac Tromethamine 30 MG/ML VIAL ONE (11:45)
[2023-03-06] MEDS: HYDROcodone/Acetaminophen 10/325 mg Tablet PO PRN ×2 (13:03→20:29)
[2023-03-06] MEDS: Sodium Chloride 0.9% 1,000 ML IV SCH (13:06)
[2023-03-06] MEDS: ALPRAZolam 1 MG TAB PO PRN (13:14)
[2023-03-06] MEDS: Clindamycin/D5W 900 MG in Premix Bag 1 BAG IVPB SCH ×2 (14:15→22:19)
[2023-03-06 15:54] VITALS: BMI 20.2
[2023-03-06] MEDS: Morphine 2 MG/ML VIAL SLOW IVP PRN ×2 (16:42→22:26)
[2023-03-06] MEDS: Lubiprostone 8 MCG CAP PO SCH (18:56)
[2023-03-06] MEDS: Gabapentin 400 MG CAP PO SCH (20:28)
[2023-03-06] MEDS: Prazosin HCl 1 MG CAP PO SCH (20:28)
[2023-03-06] MEDS: traZODone HCl 150 MG TAB PO SCH (20:30)
[2023-03-06] MEDS ORDERED: Gabapentin 300 MG CAP PO SCH (21:00)
[2023-03-06] MEDS: Zolpidem Tartrate 5 MG TAB PO PRN (22:26)
[2023-03-07] MEDS: Sodium Chloride 0.9% 1,000 ML IV SCH ×2 (02:35→15:46)
[2023-03-07] MEDS: HYDROcodone/Acetaminophen 10/325 mg Tablet PO PRN ×4 (04:33→21:28)
[2023-03-07] MEDS: Levothyroxine 150 MCG TAB PO SCH (06:21)
[2023-03-07] MEDS: ALPRAZolam 1 MG TAB PO PRN (10:42)
[2023-03-07] MEDS: Lubiprostone 8 MCG CAP PO SCH ×2 (10:42→16:42)
[2023-03-07] MEDS: Oxybutynin ER 5 MG TAB PO SCH (10:42)
[2023-03-07] MEDS: Prazosin HCl 1 MG CAP PO SCH (21:27)
[2023-03-07] MEDS: Gabapentin 400 MG CAP PO SCH (21:28)
[2023-03-07] MEDS: traZODone HCl 150 MG TAB PO SCH (21:29)
[2023-03-07] MEDS: Zolpidem Tartrate 5 MG TAB PO PRN (21:36)
[2023-03-08] MEDS: Sodium Chloride 0.9% 1,000 ML IV SCH (04:40)
[2023-03-08] MEDS: Levothyroxine 150 MCG TAB PO SCH (05:33)
[2023-03-08] MEDS: HYDROcodone/Acetaminophen 10/325 mg Tablet PO PRN ×2 (05:33→12:32)
[2023-03-08] MEDS: ALPRAZolam 1 MG TAB PO PRN (05:33)
[2023-03-08 08:27] VITALS: BP 102/62; TEMP 99
[2023-03-08] MEDS: Oxybutynin ER 5 MG TAB PO SCH (09:52)
[2023-03-08] MEDS: Lubiprostone 8 MCG CAP PO SCH (10:35)
== END 2023-03-08 16:15 | disposition home health service (06) | DRG 458 ==
LOC: SDC 06:55 → SURG A 12:16 → OBSVTOIN 03-07 14:39
PROVIDERS: ADMIT Neurological Surgery; ATTEND Neurological Surgery
PROC: 0SG0071 Fusion of Lumbar Vertebral Joint with Autologous Tissue Substitute, Posterior Approach, Posterior Column, Open Approach (ICD-10-PCS; principal; 2023-03-06)
PROC: 01NB0ZZ Release Lumbar Nerve, Open Approach (ICD-10-PCS; 2023-03-06)
PROC: 3E0U0GB Introduction of Recombinant Bone Morphogenetic Protein into Joints, Open Approach (ICD-10-PCS; 2023-03-06)
DX: M48.061 Spinal stenosis, lumbar region without neurogenic claudication (principal); M41.56 Other secondary scoliosis, lumbar region; M54.16 Radiculopathy, lumbar region; G89.29 Other chronic pain; E03.9 Hypothyroidism, unspecified; J44.9 Chronic obstructive pulmonary disease, unspecified; I10 Essential (primary) hypertension; Z88.1 Allergy status to other antibiotic agents; Z88.8 Allergy status to other drugs, medicaments and biological substances
CPT/HCPCS: 96374; 96375; 96376; C1713; C1768; G0378; J1100; J1170; J1885; J2250; J2272; J2405; J2704; J3010; J3370; J3490; J7050

== ENCOUNTER 2023-07-14 12:10 | Inpatient (IN) | payer MEDICARE ==
[2023-07-14 13:27] LABS: #Eosinphils 0.1 thou/uL (0.0-0.7); #Monocytes 0.3 thou/uL (0.11-0.59); #Neutrophils 2.7 thou/uL (1.40-6.50); %Eosinophils 1.5 % (0.0-10.0); %Lymphocytes 20.3 % (21.0-51.0); %Monocytes 8.7 % (0.0-10.0); %Neutrophils 68.2 % (42.0-75.0); Hemoglobin 12.1 g/dL (12.0-16.0); Mean Corpuscular Hemoglobin 26.6 pg (27.0-31.0); Mean Corpuscular Volume 85.7 fl (78.0-98.0); Mean Platelet Volume 9.5 fL (7.4-10.4); Platelet Count 154 10x3/uL (130-400); RBC Distribution Width 15.6 % (11.5-14.5); Red Blood Cell (RBC) Count 4.55 mill/uL (4.20-5.40); White Blood Cell (WBC) Count 3.9 10x3/uL (4.8-10.8)
[2023-07-14] MEDS ORDERED: Ondansetron ODT 4 MG TAB ONE ×2 (13:42→16:49)
[2023-07-14] MEDS ORDERED: Morphine 4 MG/ML VIAL ONE (13:42)
[2023-07-14 13:48] LABS: ALT (SGPT) 12 U/L (8-55); AST (SGOT) 13 U/L (5-34); Albumin 4.2 g/dL (3.4-4.8); Alkaline Phosphatase 46 U/L (40-110); Anion Gap 13 mmol/L (10-20); BUN (Urea Nitrogen) 27 mg/dL (9.8-20.1); Bilirubin, Total 0.2 mg/dL (0.2-1.2); Calc. Creatinine Clearance 0 mL/min (70-130); Calcium 9.3 mg/dL (7.8-10.44); Carbon Dioxide 30 mmol/L (23-31); Chloride 95 mmol/L (98-107); Estimated GFR 46; Globulin 2.4 g/dL (2.4-3.5); Glucose 91 mg/dL (80-115); Potassium 5.5 mmol/L (3.5-5.1); Protein, Total 6.6 g/dL (5.8-8.1); Sodium 132 mmol/L (136-145)
[2023-07-14 13:49] LABS: Acetaminophen Less than 10 mcg/mL (10.0-30.0); Alcohol Less than 10.0 mg/dL (Less than 10); Salicylate Less than 8.0 mg/dL (15.0-30.0)
[2023-07-14 14:44] LABS: Bacteria/HPF None Seen HPF (None Seen); Bilirubin Negative (Negative); Blood, Urine Negative (Negative); CAUTI Indications for Culture Dysuria,urgency,freq; Clarity Clear (Clear); Glucose, Urine (Dipstick) Normal (Negative); Ketone, Urine Negative (Negative); Leukocyte Negative Leu/uL (Negative); Nitrite Negative (Negative); Protein, Urine (Dipstick) Negative (Neg-Trace); RBC/HPF 0-3 HPF (0-3); Specific Gravity, Urine 1.015 (1.002-1.036); Squamous Epithelial None Seen HPF (0-3); Urobilinogen Normal mg/dL (Less than 2); WBC/HPF 0-3 HPF (0-3)
[2023-07-14 14:48] LABS: Urine Culture Reflex No No
[2023-07-14 14:56] LABS: Amphetamine Detected (NotDetected); Barbiturates Screen Not Detected (NotDetected); Benzodiazepine Screen Detected (NotDetected); Cocaine Metabolite Screen Not Detected (NotDetected); Methadone Not Detected (NotDetected); Methamphetamine Detected (NotDetected); Opiate Screen Detected (NotDetected); Oxycodone Screen Not Detected (NotDetected); Phencyclidine (PCP) Not Detected (NotDetected); THC/Cannabinoid Screen Not Detected (NotDetected); Tricyclic Screen Not Detected (NotDetected)
[2023-07-14] MEDS ORDERED: Bisacodyl 5 MG TAB PO PRN (19:09)
[2023-07-14] MEDS ORDERED: Ondansetron PF 4 MG/2 ML Vial IVP PRN (19:09)
[2023-07-14] MEDS ORDERED: Senokot S 8.6-50 MG TAB PO PRN (19:09)
[2023-07-14] MEDS ORDERED: Sodium Chloride 0.9% 1,000 ML IV SCH (19:15)
[2023-07-14] MEDS: Amiodarone 200 MG TAB PO SCH (20:03)
[2023-07-14] MEDS: Gabapentin 300 MG CAP PO SCH (20:03)
[2023-07-14] MEDS: ALPRAZolam 1 MG TAB PO PRN (20:03)
[2023-07-14] MEDS: Apixaban 5 MG TAB PO SCH (20:03)
[2023-07-14] MEDS ORDERED: Melatonin 3 MG TAB PO PRN (20:31)
[2023-07-14] MEDS: Nicotine 14 MG PATCH TD SCH (20:39)
[2023-07-14] MEDS: HYDROcodone/Acetaminophen 10/325 mg Tablet PO PRN (22:04)
[2023-07-14 22:33] LABS: Troponin I Less than 0.010 ng/mL (< 0.028)
[2023-07-15] MEDS: Levothyroxine 150 MCG TAB PO SCH (05:27)
[2023-07-15 06:17] LABS: #Basophils 0.1 thou/uL (0.0-0.2); #Eosinphils 0.1 thou/uL (0.0-0.7); #Monocytes 0.3 thou/uL (0.11-0.59); #Neutrophils 1.9 thou/uL (1.40-6.50); %Basophils 1.5 % (0.0-1.0); %Eosinophils 2.4 % (0.0-10.0); %Monocytes 10.1 % (0.0-10.0); %Neutrophils 55.7 % (42.0-75.0); Hematocrit 36.6 % (36.0-47.0); Hemoglobin 11.1 g/dL (12.0-16.0); Mean Corpuscular HGB CONC 30.3 g/dL (32.0-36.0); Mean Corpuscular Volume 85.7 fl (78.0-98.0); Mean Platelet Volume 9.7 fL (7.4-10.4); Platelet Count 149 10x3/uL (130-400); RBC Distribution Width 15.6 % (11.5-14.5); Red Blood Cell (RBC) Count 4.27 mill/uL (4.20-5.40); White Blood Cell (WBC) Count 3.4 10x3/uL (4.8-10.8)
[2023-07-15 06:44] LABS: ALT (SGPT) 9 U/L (8-55); AST (SGOT) 12 U/L (5-34); Albumin 3.3 g/dL (3.4-4.8); Alkaline Phosphatase 38 U/L (40-110); Anion Gap 10 mmol/L (10-20); BUN (Urea Nitrogen) 21 mg/dL (9.8-20.1); Bilirubin, Total 0.2 mg/dL (0.2-1.2); Calc. Creatinine Clearance 32 mL/min (70-130); Calcium 8.4 mg/dL (7.8-10.44); Carbon Dioxide 30 mmol/L (23-31); Chloride 100 mmol/L (98-107); Estimated GFR 48; Globulin 2.1 g/dL (2.4-3.5); Glucose 103 mg/dL (80-115); Potassium 4.3 mmol/L (3.5-5.1); Protein, Total 5.4 g/dL (5.8-8.1); Sodium 136 mmol/L (136-145)
[2023-07-15 06:46] LABS: Troponin I Less than 0.010 ng/mL (< 0.028)
[2023-07-15] MEDS: ALPRAZolam 1 MG TAB PO PRN ×2 (08:36→21:38)
[2023-07-15] MEDS: Gabapentin 300 MG CAP PO SCH ×2 (08:36→21:38)
[2023-07-15] MEDS: Polyethylene Glycol 3350 17 GM Packet PO SCH (08:36)
[2023-07-15] MEDS: Oxybutynin ER 5 MG TAB PO SCH (08:36)
[2023-07-15] MEDS: Amiodarone 200 MG TAB PO SCH ×2 (08:37→21:39)
[2023-07-15] MEDS: Apixaban 5 MG TAB PO SCH ×2 (08:37→21:38)
[2023-07-15] MEDS ORDERED: Bisacodyl 10 MG SUPP PR SCH (08:45)
[2023-07-15] MEDS ORDERED: Magnesium Citrate 300 ML BOT PO SCH (08:45)
[2023-07-15] MEDS ORDERED: Milk Of Magnesia 30 ML UDCUP PO SCH (08:45)
[2023-07-15] MEDS: Lubiprostone 8 MCG CAP PO SCH ×2 (10:31→16:32)
[2023-07-15] MEDS: HYDROcodone/Acetaminophen 10/325 mg Tablet PO PRN ×2 (11:47→17:03)
[2023-07-15 14:20] LABS: Troponin I Less than 0.010 ng/mL (< 0.028)
[2023-07-15] MEDS ORDERED: Mineral Oil ENEMA PR SCH (14:45)
[2023-07-15 16:41] VITALS: BMI 19.8
[2023-07-15] MEDS: Nicotine 14 MG PATCH TD SCH (21:38)
[2023-07-16 04:50] LABS: #Eosinphils 0.1 thou/uL (0.0-0.7); #Monocytes 0.4 thou/uL (0.11-0.59); #Neutrophils 2.2 thou/uL (1.40-6.50); %Basophils 1.1 % (0.0-1.0); %Eosinophils 2.7 % (0.0-10.0); %Lymphocytes 26.3 % (21.0-51.0); %Monocytes 11.1 % (0.0-10.0); %Neutrophils 58.5 % (42.0-75.0); Hematocrit 35.6 % (36.0-47.0); Hemoglobin 10.9 g/dL (12.0-16.0); Mean Corpuscular HGB CONC 30.6 g/dL (32.0-36.0); Mean Corpuscular Hemoglobin 26.5 pg (27.0-31.0); Mean Corpuscular Volume 86.6 fl (78.0-98.0); Mean Platelet Volume 9.6 fL (7.4-10.4); Platelet Count 146 10x3/uL (130-400); RBC Distribution Width 15.9 % (11.5-14.5); Red Blood Cell (RBC) Count 4.11 mill/uL (4.20-5.40); White Blood Cell (WBC) Count 3.7 10x3/uL (4.8-10.8)
[2023-07-16 05:11] LABS: Anion Gap 11 mmol/L (10-20); BUN (Urea Nitrogen) 17 mg/dL (9.8-20.1); Calc. Creatinine Clearance 32 mL/min (70-130); Calcium 8.4 mg/dL (7.8-10.44); Carbon Dioxide 27 mmol/L (23-31); Chloride 101 mmol/L (98-107); Estimated GFR 45; Glucose 92 mg/dL (80-115); Sodium 135 mmol/L (136-145)
[2023-07-16] MEDS: Levothyroxine 150 MCG TAB PO SCH (06:04)
[2023-07-16] MEDS: Gabapentin 300 MG CAP PO SCH (07:52)
[2023-07-16] MEDS: Amiodarone 200 MG TAB PO SCH (07:53)
[2023-07-16] MEDS: Apixaban 5 MG TAB PO SCH (07:53)
[2023-07-16] MEDS: Oxybutynin ER 5 MG TAB PO SCH (07:53)
[2023-07-16] MEDS: Lubiprostone 8 MCG CAP PO SCH ×2 (07:54→17:26)
[2023-07-16] MEDS: Polyethylene Glycol 3350 17 GM Packet PO SCH (07:54)
[2023-07-16] MEDS: ALPRAZolam 1 MG TAB PO PRN (08:31)
[2023-07-16] MEDS ORDERED: Mineral Oil ENEMA PR PRN (09:00)
[2023-07-16] MEDS ORDERED: Acetaminophen 325 MG TAB PO PRN (14:06)
[2023-07-16] MEDS ORDERED: Loperamide HCl 2 MG CAP PO PRN (15:40)
[2023-07-16] MEDS ORDERED: Loperamide HCl 2 MG CAP PO SCH (15:40)
[2023-07-16 16:30] VITALS: BP 109/56; TEMP 98.9
[2023-07-16] MEDS ORDERED: ALPRAZolam 1 MG TAB PO SCH (21:00)
== END 2023-07-16 18:15 | disposition home or self-care (01) | DRG 392 ==
LOC: ERS 12:10 → 2SW 17:45 → OBSVTOIN 07-16 12:27
PROVIDERS: ADMIT Internal Medicine Nephrology; ATTEND Family Medicine
DX: K58.1 Irritable bowel syndrome with constipation (principal); N17.9 Acute kidney failure, unspecified; E87.5 Hyperkalemia; E03.9 Hypothyroidism, unspecified; F41.9 Anxiety disorder, unspecified; I48.91 Unspecified atrial fibrillation; J44.9 Chronic obstructive pulmonary disease, unspecified; I50.9 Heart failure, unspecified; I11.0 Hypertensive heart disease with heart failure; F17.210 Nicotine dependence, cigarettes, uncomplicated; F19.10 Other psychoactive substance abuse, uncomplicated; E86.9 Volume depletion, unspecified; Z79.899 Other long term (current) drug therapy; Z88.8 Allergy status to other drugs, medicaments and biological substances; Z79.01 Long term (current) use of anticoagulants; Z99.81 Dependence on supplemental oxygen; Z79.890 Hormone replacement therapy
CPT/HCPCS: 36415; 70450; 71045; 72170; 74019; 80048; 80053; 80306; 80307; 81001; 84484; 85025; 87081; 87086; 93005; 96361; 96374; J2270; J7050; Q0162

== ENCOUNTER 2023-10-16 12:01 | Emergency (ER) | payer MEDICARE ==
[2023-10-16 14:02] LABS: SARS-CoV-2 NAA Rapid Test Not Detected (NotDetected)
[2023-10-16 14:53] LABS: Bilirubin Negative (Negative); Blood, Urine Trace (Negative); CAUTI Indications for Culture Dysuria,urgency,freq; Clarity Turbid (Clear); Glucose, Urine (Dipstick) Normal (Negative); Ketone, Urine Negative (Negative); Leukocyte 75 Leu/uL (Negative); Nitrite Negative (Negative); Protein, Urine (Dipstick) 10 mg/dL (Neg-Trace); RBC/HPF 0-3 HPF (0-3); Specific Gravity, Urine 1.023 (1.002-1.036); Squamous Epithelial 0-3 HPF (0-3); Urobilinogen Normal mg/dL (Less than 2); WBC/HPF 0-3 HPF (0-3); pH, Urine 5.5 (5.0-9.0)
[2023-10-16 14:54] LABS: Bacteria/HPF 1+ HPF (None Seen)
[2023-10-16 14:55] LABS: Urine Culture Reflex No No
[2023-10-16] MEDS ORDERED: HYDROcodone/Acetaminophen 5/325 mg Tablet ONE (15:54)
== END 2023-10-16 16:56 | disposition home or self-care (01) ==
LOC: ERS 12:01
DX: R51.9 Headache, unspecified (principal); N39.0 Urinary tract infection, site not specified; I50.9 Heart failure, unspecified; E03.9 Hypothyroidism, unspecified; I48.91 Unspecified atrial fibrillation; F17.210 Nicotine dependence, cigarettes, uncomplicated; Z20.822 Contact with and (suspected) exposure to COVID-19; Z79.899 Other long term (current) drug therapy; Z79.82 Long term (current) use of aspirin
CPT/HCPCS: 70450; 81001; 99284; U0002

== ENCOUNTER 2024-01-28 08:41 | Emergency (ER) | payer MEDICARE ==
[2024-01-28] MEDS ORDERED: Iopamidol-370 76% 500 ML MDV (1 ML CHARGE) ONE (09:01)
[2024-01-28 09:58] LABS: #Eosinphils 0.1 thou/uL (0.0-0.7); #Monocytes 0.2 thou/uL (0.11-0.59); #Neutrophils 1.5 thou/uL (1.40-6.50); %Eosinophils 1.7 % (0.0-10.0); %Lymphocytes 39.7 % (21.0-51.0); %Neutrophils 49.3 % (42.0-75.0); Hematocrit 37.1 % (36.0-47.0); Mean Corpuscular HGB CONC 32.3 g/dL (32.0-36.0); Mean Corpuscular Volume 86.7 fl (78.0-98.0); Mean Platelet Volume 9.6 fL (7.4-10.4); Platelet Count 133 10x3/uL (130-400); RBC Distribution Width 15.3 % (11.5-14.5); Red Blood Cell (RBC) Count 4.28 mill/uL (4.20-5.40)
[2024-01-28 10:43] LABS: ALT (SGPT) 9 U/L (8-55); AST (SGOT) 17 U/L (5-34); Albumin 4.3 g/dL (3.4-4.8); Alkaline Phosphatase 52 U/L (40-110); Anion Gap 13 mmol/L (10-20); BUN (Urea Nitrogen) 18 mg/dL (9.8-20.1); Bilirubin, Total 0.3 mg/dL (0.2-1.2); Calc. Creatinine Clearance 0 mL/min (70-130); Calcium 9.2 mg/dL (7.8-10.44); Carbon Dioxide 29 mmol/L (23-31); Chloride 97 mmol/L (98-107); Estimated GFR 44; Globulin 3.2 g/dL (2.4-3.5); Glucose 84 mg/dL (80-115); Lipase 40 U/L (8-78); Magnesium 2.1 mg/dL (1.6-2.6); Potassium 4.6 mmol/L (3.5-5.1); Protein, Total 7.5 g/dL (5.8-8.1); Sodium 134 mmol/L (136-145)
[2024-01-28 10:46] LABS: Troponin I 0.018 ng/mL (< 0.028)
[2024-01-28 11:51] LABS: Bacteria/HPF None Seen HPF (None Seen); Bilirubin Negative (Negative); Blood, Urine Negative (Negative); CAUTI Indications for Culture Pelvic or flank pain; Clarity Clear (Clear); Glucose, Urine (Dipstick) Normal (Negative); Ketone, Urine Negative (Negative); Leukocyte Negative Leu/uL (Negative); Nitrite Negative (Negative); Protein, Urine (Dipstick) Negative (Neg-Trace); RBC/HPF 0-3 HPF (0-3); Specific Gravity, Urine 1.015 (1.002-1.036); Squamous Epithelial 0-3 HPF (0-3); Urobilinogen Normal mg/dL (Less than 2); WBC/HPF 0-3 HPF (0-3); pH, Urine 6.5 (5.0-9.0)
[2024-01-28 11:53] LABS: Urine Culture Reflex No No
== END 2024-01-28 12:51 | disposition home or self-care (01) ==
LOC: ERS 08:41
DX: K59.00 Constipation, unspecified (principal); E03.9 Hypothyroidism, unspecified; I48.91 Unspecified atrial fibrillation; F17.210 Nicotine dependence, cigarettes, uncomplicated
CPT/HCPCS: 71045; 74177; 80053; 81001; 83690; 83735; 83880; 84443; 84484; 85025; 93005; Q9967

== ENCOUNTER 2024-04-03 17:28 | Inpatient (IN) | payer MEDICARE ==
[~2024-04-03 17:28] MED LIST changes: -Iopamidol 370 76% 50 ML VIAL FS ONE; +Iopamidol-370 76% 500 ML MDV (1 ML CHARGE) ONE
[2024-04-03 18:09] LABS: #Basophils 0.05 10x3/uL (0.0-0.2); %Basophils 0.3 % (0.0-1.0); %Eosinophils 0.2 % (0.0-10.0); %Lymphocytes 10.6 % (21.0-51.0); %Monocytes 5.8 % (0.0-10.0); %Neutrophils 82.4 % (42.0-75.0); Hematocrit 39.2 % (36.0-47.0); Hemoglobin 13.4 g/dL (12.0-16.0); Mean Corpuscular HGB CONC 34.2 g/dL (32.0-36.0); Mean Corpuscular Hemoglobin 29.4 pg (27.0-31.0); Mean Platelet Volume 9.7 fL (7.4-10.4); Platelet Count 260 10x3/uL (130-400); RBC Distribution Width 16.2 % (11.5-14.5); Red Blood Cell (RBC) Count 4.56 mill/uL (4.20-5.40)
[2024-04-03 18:25] LABS: Bilirubin Negative (Negative); Blood, Urine Negative (Negative); Glucose, Urine (Dipstick) Negative (Negative); Ketone, Urine 15 mg/dL (Negative); Leukocyte Negative (Negative); Nitrite Negative (Negative); Protein, Urine (Dipstick) Negative (Neg-Trace); Urobilinogen 0.2 mg/dL (Less than 2)
[2024-04-03 18:26] LABS: INR-International Normal Ratio 0.9; PTT 29.7 sec (22.9-36.1); Prothrombin Time 12.2 sec (12.0-14.7)
[2024-04-03 18:27] LABS: ALT (SGPT) 19 U/L (8-55); AST (SGOT) 23 U/L (5-34); Albumin 4.4 g/dL (3.4-4.8); Alkaline Phosphatase 61 U/L (40-110); Anion Gap 16 mmol/L (10-20); BUN (Urea Nitrogen) 20 mg/dL (9.8-20.1); Bilirubin, Total 0.8 mg/dL (0.2-1.2); CK (CPK) 237 U/L (29-168); Calc. Creatinine Clearance 0 mL/min (70-130); Calcium 9.9 mg/dL (7.8-10.44); Carbon Dioxide 26 mmol/L (23-31); Chloride 89 mmol/L (98-107); Estimated GFR 79; Globulin 2.8 g/dL (2.4-3.5); Glucose 112 mg/dL (80-115); Potassium 5.6 mmol/L (3.5-5.1); Protein, Total 7.2 g/dL (5.8-8.1); Sodium 125 mmol/L (136-145)
[2024-04-03 18:28] LABS: Bacteria/HPF None Seen HPF (None Seen); CAUTI Indications for Culture Alt mental st,lethar; Clarity Clear (Clear); RBC/HPF 0-3 HPF (0-3); Squamous Epithelial None Seen HPF (0-3); WBC/HPF 0-3 HPF (0-3)
[2024-04-03 18:30] LABS: Urine Culture Reflex No No
[2024-04-03 18:32] LABS: Acetaminophen Less than 10 mcg/mL (10.0-30.0); Alcohol Less than 10.0 mg/dL (Less than 10); Salicylate Less than 8.0 mg/dL (15.0-30.0)
[2024-04-03 18:35] LABS: Amphetamine Detected (NotDetected); Barbiturates Screen Not Detected (NotDetected); Benzodiazepine Screen Detected (NotDetected); Cocaine Metabolite Screen Detected (NotDetected); Methadone Not Detected (NotDetected); Methamphetamine Detected (NotDetected); Opiate Screen Detected (NotDetected); Oxycodone Screen Not Detected (NotDetected); Phencyclidine (PCP) Not Detected (NotDetected); THC/Cannabinoid Screen Not Detected (NotDetected); Tricyclic Screen Not Detected (NotDetected)
[2024-04-03 18:48] LABS: Critical Call Chem Troponin I NUR.JLS2@1848; Troponin I 0.388 ng/mL (< 0.028)
[2024-04-03] MEDS ORDERED: Dextrose 10% in Water 250 ML ONE (19:06)
[2024-04-03] MEDS ORDERED: CALCIUM GLUC 1 GM (50 ML) BAG ONE (19:06)
[2024-04-03] MEDS ORDERED: Cefepime 2 GM VIAL ONE (19:06)
[2024-04-03] MEDS ORDERED: Sodium Chloride 0.9% 100 ML ONE (19:07)
[2024-04-03] MEDS ORDERED: traZODone HCl 150 MG TAB PO PRN (20:39)
[2024-04-03] MEDS ORDERED: Ondansetron PF 4 MG/2 ML Vial IVP PRN (20:41)
[2024-04-03] MEDS ORDERED: Ondansetron ODT 4 MG TAB PO PRN (20:41)
[2024-04-03] MEDS ORDERED: Aspirin 300 MG Suppository ONE (20:57)
[2024-04-03] MEDS ORDERED: Vancomycin 1 GM/200 ML (FROZEN) BAG ONE (20:57)
[2024-04-03] MEDS ORDERED: Albuterol 200 PUFF INH INH PRN (22:15)
[2024-04-03 22:27] LABS: Critical Call Chem Troponin I NUR.JLS2 @2225; Troponin I 0.449 ng/mL (< 0.028)
[2024-04-03] MEDS: Lactated Ringer's 1,000 ML IV SCH (23:50)
[2024-04-03] MEDS: Enoxaparin 60 MG (0.6 mL) SYRINGE SC SCH (23:50)
[2024-04-03] MEDS: Famotidine/PF 20 mg/2ml Vial SLOW IVP SCH (23:56)
[2024-04-04] MEDS: Sacubitril 24MG/Valsartan 26 MG TAB PO SCH (00:05)
[2024-04-04] MEDS: Famotidine 20 MG TAB PO SCH (00:05)
[2024-04-04 00:45] LABS: Critical Call Chem Troponin I RESULT DECREASING; Troponin I 0.412 ng/mL (< 0.028)
[2024-04-04 01:00] LABS: Actual Bicarbonate (HCO3v) 18.7 mEq/L (22-28); Base Excess -2.8 mEq/L (-2.0 to +3.0); Calcium, Ionized (venous) 0.95 mmol/L (1.16-1.32); Chloride (VBG) 90 mmol/L (98-106); Hematocrit-VBG 39 % (36.0-47.0); Hemoglobin (Hb) 13.1 g/dL (11.7-16.1); Potassium (VBG) 4.18 mmol/L (3.70-5.30); Sodium 120 mmol/L (133-146); pH (venous) 7.501 (7.32-7.43)
[2024-04-04] MEDS: Furosemide 40 MG (4 mL) VIAL SLOW IVP SCH (01:25)
[2024-04-04] MEDS: Piperacillin/Tazobactam 3.375 GM in Sodium Chloride 0.9% 100 ML IVPB SCH ×2 (02:03→06:05)
[2024-04-04] MEDS ORDERED: Ipratropium/Albuterol 3 ML NEB NEB PRN (02:12)
[2024-04-04 02:27] VITALS: BMI 20.5
[2024-04-04] MEDS: Acetaminophen 650 MG Suppository PR PRN (03:10)
[2024-04-04 04:50] LABS: #Basophils Less than 0.03 10x3/uL (0.0-0.2); #Eosinphils Less than 0.03 10x3/uL (0.0-0.7); %Basophils 0.1 % (0.0-1.0); %Lymphocytes 8.1 % (21.0-51.0); %Monocytes 7.8 % (0.0-10.0); %Neutrophils 83.7 % (42.0-75.0); Hemoglobin 13.6 g/dL (12.0-16.0); Mean Corpuscular HGB CONC 34.9 g/dL (32.0-36.0); Mean Corpuscular Hemoglobin 29.1 pg (27.0-31.0); Mean Corpuscular Volume 83.5 fL (78.0-98.0); Mean Platelet Volume 9.9 fL (7.4-10.4); Platelet Count 231 10x3/uL (130-400); RBC Distribution Width 16.4 % (11.5-14.5); Red Blood Cell (RBC) Count 4.67 mill/uL (4.20-5.40)
[2024-04-04 05:16] LABS: Anion Gap 15 mmol/L (10-20); BUN (Urea Nitrogen) 15 mg/dL (9.8-20.1); Calc. Creatinine Clearance 52 mL/min (70-130); Calcium 8.9 mg/dL (7.8-10.44); Carbon Dioxide 23 mmol/L (23-31); Chloride 87 mmol/L (98-107); Estimated GFR 83; Glucose 113 mg/dL (80-115); Potassium 3.7 mmol/L (3.5-5.1); Sodium 121 mmol/L (136-145)
[2024-04-04 05:23] LABS: Actual Bicarbonate (HCO3a) 25.1 mEq/L (22-28); Base Excess (BEa) 1.5 mEq/L (-2.0 to +3.0); CO2 Tension 36.5 mmHg (35.0-45.0); Calcium, Ionized (arterial) 1.09 mmol/L (1.12-1.30); Hematocrit-ABG 41 % (36.0-47.0); Potassium - ABG Lab 3.92 mmol/L (3.70-5.30); pH, Arterial 7.455 (7.35-7.45)
[2024-04-04 05:25] LABS: O2 Tension (PaO2), arterial 48.8 mmHg (> 80.0)
[2024-04-04] MEDS: Morphine 2 MG/ML VIAL SLOW IVP SCH (06:04)
[2024-04-04] MEDS: Mometasone 100 MCG/Formoterol 5 MCG 120 PUFF INHALER INH SCH (06:27)
[2024-04-04] MEDS: Oxybutynin ER 5 MG TAB PO SCH (09:35)
[2024-04-04] MEDS: Pantoprazole DR 40 MG TAB PO SCH (09:35)
[2024-04-04 19:17] LABS: ALT (SGPT) 16 U/L (8-55); AST (SGOT) 28 U/L (5-34); Albumin 3.6 g/dL (3.4-4.8); Alkaline Phosphatase 58 U/L (40-110); Anion Gap 15 mmol/L (10-20); BUN (Urea Nitrogen) 15 mg/dL (9.8-20.1); Bilirubin, Total 0.8 mg/dL (0.2-1.2); Calc. Creatinine Clearance 48 mL/min (70-130); Calcium 9.2 mg/dL (7.8-10.44); Carbon Dioxide 22 mmol/L (23-31); Chloride 88 mmol/L (98-107); Estimated GFR 78; Glucose 94 mg/dL (80-115); Magnesium 1.7 mg/dL (1.6-2.6); Phosphorus 3.4 mg/dL (2.3-4.7); Potassium 4.3 mmol/L (3.5-5.1); Protein, Total 6.6 g/dL (5.8-8.1); Sodium 121 mmol/L (136-145)
[2024-04-04] MEDS: Enoxaparin 40 MG (0.4 mL) SYRINGE SC SCH (22:30)
[2024-04-05 05:41] LABS: #Basophils 0.08 10x3/uL (0.0-0.2); #Eosinphils Less than 0.03 10x3/uL (0.0-0.7); %Eosinophils 0.1 % (0.0-10.0); %Lymphocytes 13.3 % (21.0-51.0); %Monocytes 9.4 % (0.0-10.0); %Neutrophils 75.8 % (42.0-75.0); Hematocrit 36.3 % (36.0-47.0); Hemoglobin 12.5 g/dL (12.0-16.0); Mean Corpuscular HGB CONC 34.4 g/dL (32.0-36.0); Mean Corpuscular Hemoglobin 29.5 pg (27.0-31.0); Mean Corpuscular Volume 85.6 fL (78.0-98.0); Mean Platelet Volume 9.8 fL (7.4-10.4); Platelet Count 221 10x3/uL (130-400); RBC Distribution Width 17.2 % (11.5-14.5); Red Blood Cell (RBC) Count 4.24 mill/uL (4.20-5.40)
[2024-04-05] MEDS: Sodium Chloride 0.9% 1,000 ML IV SCH (08:44)
[2024-04-05] MEDS: Lorazepam 2 MG/ML VIAL SLOW IVP SCH (16:51)
[2024-04-05 16:56] LABS: Critical Call Chem Troponin I TRENDING DOWN; Troponin I 0.219 ng/mL (< 0.028)
[2024-04-05] MEDS: Nicotine 14 MG PATCH TD PRN (20:48)
[2024-04-06 04:07] LABS: #Basophils 0.07 10x3/uL (0.0-0.2); #Eosinphils Less than 0.03 10x3/uL (0.0-0.7); %Basophils 1.1 % (0.0-1.0); %Eosinophils 0.3 % (0.0-10.0); %Monocytes 13.3 % (0.0-10.0); Mean Corpuscular HGB CONC 33.3 g/dL (32.0-36.0); Mean Corpuscular Hemoglobin 28.9 pg (27.0-31.0); Mean Corpuscular Volume 86.7 fL (78.0-98.0); Mean Platelet Volume 9.7 fL (7.4-10.4); Platelet Count 218 10x3/uL (130-400); RBC Distribution Width 17.4 % (11.5-14.5); Red Blood Cell (RBC) Count 4.15 mill/uL (4.20-5.40)
[2024-04-06 04:31] LABS: Anion Gap 14 mmol/L (10-20); BUN (Urea Nitrogen) 17 mg/dL (9.8-20.1); Calc. Creatinine Clearance 51 mL/min (70-130); Calcium 8.6 mg/dL (7.8-10.44); Carbon Dioxide 20 mmol/L (23-31); Chloride 96 mmol/L (98-107); Estimated GFR 84; Glucose 75 mg/dL (80-115); Potassium 3.4 mmol/L (3.5-5.1); Sodium 127 mmol/L (136-145)
[2024-04-06] MEDS: Dextrose 50% Abboject 50 ML SYRINGE SLOW IVP PRN (16:58)
[2024-04-06] MEDS ORDERED: Dextrose 5% in Water 1,000 ML IV PRN (17:00)
[2024-04-06] MEDS ORDERED: Glucagon 1 MG/ML KIT IM PRN (17:00)
[2024-04-07 04:49] LABS: #Basophils 0.06 10x3/uL (0.0-0.2); #Eosinphils 0.06 10x3/uL (0.0-0.7); #Monocytes 0.71 10x3/uL (0.11-0.59); #Neutrophils 4.78 10x3/uL (1.40-6.50); %Basophils 0.9 % (0.0-1.0); %Eosinophils 0.9 % (0.0-10.0); %Lymphocytes 17.4 % (21.0-51.0); %Monocytes 10.4 % (0.0-10.0); %Neutrophils 69.7 % (42.0-75.0); Hematocrit 36.8 % (36.0-47.0); Hemoglobin 12.3 g/dL (12.0-16.0); Mean Corpuscular HGB CONC 33.4 g/dL (32.0-36.0); Mean Corpuscular Hemoglobin 29.3 pg (27.0-31.0); Mean Corpuscular Volume 87.6 fL (78.0-98.0); Mean Platelet Volume 9.8 fL (7.4-10.4); Platelet Count 219 10x3/uL (130-400); RBC Distribution Width 17.1 % (11.5-14.5); White Blood Cell (WBC) Count 6.85 10x3/uL (4.8-10.8)
[2024-04-07 05:07] LABS: Cardiac Risk 3.6 (Less than 4.5); Cholesterol 135 mg/dl (< 200 Desired); HDL Cholesterol 38 mg/dL (>60 Neg Risk); LDL Cholesterol, Calculated 82 mg/dL; Triglycerides 74 mg/dL (Less than 150)
[2024-04-07 05:26] LABS: Calcium 8.5 mg/dL (7.8-10.44); Chloride 103 mmol/L (98-107); Potassium 3.2 mmol/L (3.5-5.1); Sodium 137 mmol/L (136-145)
[2024-04-07 05:27] LABS: Glucose 71 mg/dL (80-115)
[2024-04-07 05:28] LABS: Anion Gap 17 mmol/L (10-20); Carbon Dioxide 20 mmol/L (23-31)
[2024-04-07 05:31] LABS: BUN (Urea Nitrogen) 16 mg/dL (9.8-20.1); Calc. Creatinine Clearance 61 mL/min (70-130); Estimated GFR 96
[2024-04-07] MEDS: Dextrose 5 % And 0.9 % NaCl 1,000 ML IV SCH (10:03)
[2024-04-07] MEDS: Aspirin 300 MG Suppository PR SCH (10:05)
[2024-04-08 04:31] LABS: #Basophils 0.05 10x3/uL (0.0-0.2); %Basophils 0.8 % (0.0-1.0); %Eosinophils 1.4 % (0.0-10.0); %Lymphocytes 20.6 % (21.0-51.0); %Monocytes 10.6 % (0.0-10.0); %Neutrophils 66.3 % (42.0-75.0); Hematocrit 39.4 % (36.0-47.0); Hemoglobin 13.1 g/dL (12.0-16.0); Mean Corpuscular HGB CONC 33.2 g/dL (32.0-36.0); Mean Corpuscular Hemoglobin 28.2 pg (27.0-31.0); Mean Corpuscular Volume 84.9 fL (78.0-98.0); Mean Platelet Volume 9.8 fL (7.4-10.4); Platelet Count 238 10x3/uL (130-400); RBC Distribution Width 16.9 % (11.5-14.5); Red Blood Cell (RBC) Count 4.64 mill/uL (4.20-5.40)
[2024-04-08 04:53] LABS: Anion Gap 15 mmol/L (10-20); BUN (Urea Nitrogen) 9 mg/dL (9.8-20.1); Calc. Creatinine Clearance 60 mL/min (70-130); Carbon Dioxide 21 mmol/L (23-31); Chloride 105 mmol/L (98-107); Estimated GFR 96; Glucose 106 mg/dL (80-115); Potassium 2.8 mmol/L (3.5-5.1); Sodium 138 mmol/L (136-145)
[2024-04-08] MEDS: Acetaminophen 325 MG TAB PO PRN (13:14)
[2024-04-08] MEDS: Atorvastatin Calcium 40 MG TAB PO SCH (21:16)
[2024-04-09 05:37] LABS: #Basophils 0.08 10x3/uL (0.0-0.2); %Basophils 1.5 % (0.0-1.0); %Eosinophils 2.1 % (0.0-10.0); %Lymphocytes 23.7 % (21.0-51.0); %Monocytes 9.7 % (0.0-10.0); %Neutrophils 62.8 % (42.0-75.0); Hematocrit 38.8 % (36.0-47.0); Hemoglobin 13.1 g/dL (12.0-16.0); Mean Corpuscular HGB CONC 33.8 g/dL (32.0-36.0); Mean Corpuscular Hemoglobin 28.4 pg (27.0-31.0); Mean Platelet Volume 9.6 fL (7.4-10.4); Platelet Count 239 10x3/uL (130-400); RBC Distribution Width 16.6 % (11.5-14.5); Red Blood Cell (RBC) Count 4.62 mill/uL (4.20-5.40)
[2024-04-09 06:36] LABS: Anion Gap 11 mmol/L (10-20); BUN (Urea Nitrogen) 6 mg/dL (9.8-20.1); Calc. Creatinine Clearance 61 mL/min (70-130); Calcium 7.8 mg/dL (7.8-10.44); Carbon Dioxide 23 mmol/L (23-31); Chloride 106 mmol/L (98-107); Estimated GFR 96; Glucose 109 mg/dL (80-115); Potassium 2.6 mmol/L (3.5-5.1); Sodium 137 mmol/L (136-145)
[2024-04-09 08:23] VITALS: BMI 19.7
[2024-04-09] MEDS: Potassium Bicarbonate/Cit Ac 20 MEQ TAB PO SCH (09:09)
[2024-04-09] MEDS: Aspirin Chewable 81 MG TAB PO SCH (09:10)
[2024-04-09] MEDS: Potassium Chloride 40 MEQ in Premix 1 BAG IVPB SCH (09:11)
[2024-04-09] MEDS ORDERED: Loperamide HCl 2 MG CAP PO PRN (23:03)
[2024-04-10 04:09] LABS: #Basophils 0.06 10x3/uL (0.0-0.2); %Basophils 1.2 % (0.0-1.0); %Eosinophils 2.4 % (0.0-10.0); %Lymphocytes 26.3 % (21.0-51.0); %Monocytes 9.2 % (0.0-10.0); %Neutrophils 60.7 % (42.0-75.0); Hematocrit 37.4 % (36.0-47.0); Hemoglobin 12.4 g/dL (12.0-16.0); Mean Corpuscular HGB CONC 33.2 g/dL (32.0-36.0); Mean Corpuscular Hemoglobin 28.8 pg (27.0-31.0); Mean Corpuscular Volume 86.8 fL (78.0-98.0); Mean Platelet Volume 9.2 fL (7.4-10.4); Platelet Count 208 10x3/uL (130-400); RBC Distribution Width 16.5 % (11.5-14.5); Red Blood Cell (RBC) Count 4.31 mill/uL (4.20-5.40)
[2024-04-10 04:36] LABS: Anion Gap 13 mmol/L (10-20); BUN (Urea Nitrogen) 6 mg/dL (9.8-20.1); Calc. Creatinine Clearance 54 mL/min (70-130); Calcium 7.8 mg/dL (7.8-10.44); Carbon Dioxide 25 mmol/L (23-31); Chloride 103 mmol/L (98-107); Estimated GFR 91; Glucose 110 mg/dL (80-115); Sodium 138 mmol/L (136-145)
[2024-04-10] MEDS ORDERED: Electrolyte Replacement Protocol FS PRN (08:45)
[2024-04-10] MEDS: Potassium Chloride 20 MEQ TAB PO SCH (09:04)
[2024-04-10] MEDS: Potassium Bicarbonate/Cit Ac 20 MEQ TAB PO SCH (09:18)
[2024-04-10 11:46] VITALS: BP 118/76; TEMP 99.1
== END 2024-04-10 15:54 | DRG 917 ==
LOC: ERS 17:28 → 2NO 20:50 → CCU 04-04 05:43 → OBSVTOIN 04-04 08:12 → IMCU/EMU 04-04 14:32 → 2NO 04-05 06:24 → 2SE 04-05 18:23
PROVIDERS: ADMIT Student in an Organized Health Care Education/Training Program; ATTEND Internal Medicine
PROC: 4A033R1 Measurement of Arterial Saturation, Peripheral, Percutaneous Approach (ICD-10-PCS; 2024-04-04)
PROC: 5A0935A Assistance with Respiratory Ventilation, Less than 24 Consecutive Hours, High Flow/Velocity Cannula (ICD-10-PCS; 2024-04-04)
PROC: 4A00X4Z Measurement of Central Nervous Electrical Activity, External Approach (ICD-10-PCS; principal; 2024-04-06)
DX: T40.5X1A Poisoning by cocaine, accidental (unintentional), initial encounter (principal); G93.41 Metabolic encephalopathy; I21.A1 Myocardial infarction type 2; I63.9 Cerebral infarction, unspecified; J96.01 Acute respiratory failure with hypoxia; E87.1 Hypo-osmolality and hyponatremia; I50.32 Chronic diastolic (congestive) heart failure; I11.0 Hypertensive heart disease with heart failure; E87.5 Hyperkalemia; R91.8 Other nonspecific abnormal finding of lung field; E16.2 Hypoglycemia, unspecified; M51.26 Other intervertebral disc displacement, lumbar region; F41.9 Anxiety disorder, unspecified; J44.9 Chronic obstructive pulmonary disease, unspecified; F17.200 Nicotine dependence, unspecified, uncomplicated; I48.91 Unspecified atrial fibrillation; Z88.1 Allergy status to other antibiotic agents; Z88.8 Allergy status to other drugs, medicaments and biological substances; Z79.890 Hormone replacement therapy; Z79.899 Other long term (current) drug therapy; Z98.890 Other specified postprocedural states
CPT/HCPCS: 0042T; 36415; 36416; 51701; 70450; 70496; 70498; 70551; 71045; 80048; 80053; 80061; 80306; 80307; 81001; 82140; 82550; 82805; 83605; 83735; 83880; 84100; 84484; 85025; 85610; 85730; 86850; 86900; 86901; 87040; 93005; 93306; 95816; 95819; 96361; 96365; 96367; 96372; 96375; 96376; G0378; J0613; J0692; J1650; J1940; J2060; J2272; J2543; J3370-JW; J3480; J3490; J7042; J7050; J7120; J7999; Q9967; S0028